=== PATIENT | male | born 1955 | race Caucasian/White ===

== ENCOUNTER 2024-11-15 14:20 | Outpatient (CLI) | payer MEDICARE, SELFPAY ==
--- NOTE | ~2024-11-15 | XR_ITS ---
EXAMINATION: XR chest 2V Exam Date/Time: 11/15/2024 14:30 CDT HISTORY: INFLUENZA W/ OTHER RESPIRATORY MANIFESTATIONS Comparison: None. RESULT: Lines, tubes, and devices: None. Lungs and pleura: Clear. Cardiomediastinal silhouette: Unremarkable. Other: No acute osseous or upper abdominal finding. IMPRESSION: No acute cardiopulmonary process. Reviewed, dictated and finalized at location K.
--- NOTE | ~2024-11-15 | US_ITS ---
COMPLETE ABDOMINAL ULTRASOUND Ordering provider: Naif Morrow, GIN History: . RUQ ABDOMINAL PAIN . Comparison: None. FINDINGS: LIVER: Normal size and increased echotexture. No focal hepatic lesions or perihepatic fluid collectio ns are identified. Portal vein flow is normal. GALLBLADDER: Unremarkable. No evidence for stones, sludge, gallbladder wall thickening or pericholecy stic fluid collections. A negative sonographic Cooper's sign was noted. BILIARY DUCTS: No evidence for intra or extrahepatic biliary dilation. Common bile duct measures 3.8 mm in diameter which is within normal limits. PANCREAS: Normal echotexture and size. SPLEEN: Normal size, echotexture and contour and measures 10.4 cm in length. KIDNEYS: Right measures 10.1x 5.3x 6.1 cm in length and the left 10.4x 4.6x 6.1 cm in length. There i s no evidence for hydronephrosis, solid renal mass, renal calculi or perinephric fluid collections. A hypoechoic area is seen between the liver and right kidney which may be a hematoma versus adrenal m ass or perirenal fat follow-up advised. UPPER ABDOMINAL AORTA: Normal in caliber. IVC: Patent. FREE FLUID: None. IMPRESSION: 1.. Fat infiltration of the liver. Hypoechoic area around the upper pole of the kidney mid and inferior to the liver which may be a artemio gisella versus prominent perirenal fat versus an adrenal mass. Further evaluation and follow-up advised. Reviewed, dictated and finalized at location A. IMPRESSION: 1.. Fat infiltration of the liver. Hypoechoic area around the upper pole of the kidney mid and inferior to the chantal er which may be a hematoma versus prominent perirenal fat versus an adrenal mas s. Further evaluation and follow-up advised.
--- OUTSIDE RECORDS SUMMARY | 2024-11-15 15:36 | XMS_ITS | Clinical Summary ---
Author Organization [address] lt Address [address] [place] [facility] [place] [address] Care Team Providers Care Carbon Sequestration Plant Manager Name Role Phone aNif Morrow Primary Care Provider [phone] Allergies No known active allergies Medications aspirin 81 mg enteric coated tablet Take 1 tablet (81 mg total) by mouth daily 30 tablet 11/29/19 21 Active atorvastatin (LIPITOR) 80 mg tablet Take 1 tablet (80 mg total) by mouth daily 30 tablet 11/29/19 21 Active nitroglycerin (NITROSTAT) 0.[address] 1 tablet (0.4 mg total) under the tongue every 5 (five) minutes as needed for chest pain May repeat dose q 5 min, up to 3 doses total 90 tablet 11/29/19 21 Active HYDROcodone-ac etaminophen (NORCO) 5-325 mg per tablet Take 1 tablet by mouth every 6 (six) hours as needed 08/19/19 22 Active methylPREDNISo lone (MEDROL DOSEPACK) 4 mg Dosepack methylprednisolone 4 mg tablets in a dose pack TAKE DIRECTED Active omeprazole (PriLOSEC) 40 mg capsule Take 1 capsule (40 mg total) by mouth daily Act [place] testosterone cypionate (DEPO-TESTOTER ONE) 200 mg/mL injection INJECT 1 ML INTRAMUSCULAR EACH WEEK 03/22/20 22 Active BD Luer-Luciano Syringe 3 mL 21 gauge x 1 syringe USE TO GIVE TESTOSTERONE ONCE WEEKLY 02/06/20 22 Active metoprolol XL (TOPROL-XL) 25 mg extended release tablet TAKE 1 TABLET BY MOUTH EVERY DAY 90 tablet 2 08/09/19 23 Active Additional Information Patient not taking.Reported on 09/14/[address] (VOLTAREN) 75 mg EC tablet Take 1 tablet (75 mg total) by mouth 2 (two) times a day 60 tablet 1 04/29/20 23 Active losartan (COZAAR) 25 mg tablet Take 1 tablet (25 mg total) by mouth daily Act [place] Active Problems Problem Noted Date Diagnosed Date Bilateral primary osteoarthritis of knee 023 Primary osteoarthritis of left knee 09/02/2022 Chronic arthropathy 01/25/2022 Fatigue 01/25/2022 Pain of knee joint on movement 01/25/2022 Angina pectoris 12/27/2020 Overview (01/25/2022): Added automatically from request for surgery [id number] Shortness of breath 06/29/2014 Overview (09/12/2016): Dyspnea Encounters Date Type Department Care Team Description 09/14/2024 1:45 PM CDT Office Visit [facility] [address] [place] [address] [address], [place] [address] Eli Tee PA Bilateral primary osteoarthritis of knee (Primary Dx) 09/13/2024 Telephone [facility] Medicine [address] [place] [address] [address] [place] [address] Eli Tee PA from Last 3 Months Immunizations Immunization Administration Dates Next Due Influenza, Quadrivalent, Split, Intramuscular Tdap 03/21/2020 Medical History Medical History Date Comments Adiposity Obesity Hypercholesteremia Chest pain Family History Medical History Relation Name Comments Heart disease Maternal Grandfather Diabetes Mother Heart disease Mother Stroke Mother Coronary artery disease Other 1 Fami ly history of Coronary artery disease; Heart disease Other 1 Hypertension Other 1 Stroke Other 1 Diabetes Other 2 Family history of Diabetes mellitus; Cancer Paternal Grandfather Relation Name Status Comments Father Maternal Grandfather Mother Other 1 Other 2 Paternal Grandfather Social History Tobacco Use Types Packs/Day Years Used Date Smoking Tobacco: Never Smokeless Tobacco: Former Snuff, Chew AUDIT-C Answer Date Recorded Q1: How often do you have a drink containing alcohol? Never 02/20/2024 Q2: How many drinks containi ng alcohol do you have on a typical day when you are drinking? Patient does not drink Q3: How often do you have si x or more drinks on one occasion? 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 Gender Identity Not on file Sexual Orientation Not on file Obstetrics History Last Filed Vital Signs Vital Sign Reading Time Taken Comments Blood Pressure 146/85 09/14/2024 1:46 PM CDT Pulse 83 09/14/2024 1:46 PM CDT Temperature 36.1 C (97 F) 01/09/2021 8:30 AM CDT Respiratory Rate 18 02/20/2024 10:24 AM CDT Oxygen Saturation 97% 01/09/2021 1:35 PM CDT Inhaled Oxygen Concentration - - Weight 130.2 kg (287 lb) 09/14/2024 1:46 PM CDT Height 188 cm (6' 2) 09/14/2024 1:46 PM CDT Body Mass Index 36.85 09/14/2024 1:46 PM CDT Plan of Treatment Health Maintenance Due Date Last Done Comments Colon Cancer Screening-Colonoscopy 1955 Depression Screening 1955 Hepatitis C Screening 1955 Prostate Cancer Screening-PSA 1955 Hepatitis B Screening 08/18/1973 Pneumococcal vaccine 65+ (1 of 1 - PCV) 08/18/2005 Zoster Vaccine (1 of 2) 08/18/2005 Abdominal Aortic Aneurysm (AAA) Screen 08/18/2020 Well Visit 65+ 08/18/2020 Fall Risk Assessment 01/09/2022 01/09/2021 Covid-19 Vaccine ( season) 2024, 07/12/2020 Influenza Vaccine (Season Ended) 2025 03/28/20 16 DTaP/Tdap/Td Vaccine (2 - Td or Tdap) 03/21/2030 Medical Devices Implanted Type Area Accounting Manager Controller Device Identifier Shelf Expiration Date Model / Serial / Lot [employer] [id number] Angio-Seal Evolution 6fr .035in Guidewire Bypass Tube Suture - [id number] Implanted:Qty: 1 on 01/09/2021 by Francisco Yee MD at [facility] 08/06/2021 [id number] / / [id number] Procedures Procedure Name Priority Date/Time Associated Diagnosis Comments MT ARTHROCENTESIS ASPIR&/INJ MAJOR JT/BURSA W/O US Routine 09/14/2024 1:45 PM CDT Bilateral primary osteoarthritis of knee from Last 3 Months Results * MT ARTHROCENTESIS ASPIR&/INJ MAJOR JT/BURSA W/O US (09/14/2024 1:45 PM CDT) Narrative Eli Tee PA - 09/14/2024 1:45 PM CDT Eli Tee PA 09/14/2024 2:48 PM Large Joint (Hip, Knee, Shoulder) Injection: bilateral knee Performed by: Eli Tee PA Authorized by: Eli Tee PA Large Joint Injection/Aspiration: Consent Given by: Patient Timeout: prior to procedure the correct patient, procedure, and site was verified Verbal consent obtained: Yes Supporting Documentation: Indications: Pain Procedure Details: Location: Knee Site: Bilateral knee Prep: patient was prepped and draped in usual sterile fashion Needle Size: 22 G Approach: Anterolateral Ultrasound guided: No Fluroscopic guidance: No Medications Right Large Joint Injection: 80 mg methylPREDNISolone acetate 80 mg/mL; 3 mL lidocaine 20 mg/mL (2 %) Medications Left Large Joint Injection: 80 mg methylPREDNISolone acetate 80 mg/mL; 3 mL lidocaine 20 mg/mL (2 %) Patient tolerance: Patient tolerated the procedure well with no immediate complications Eli [facility]IN Final Result from Last 3 Months Insurance MEDICARE UHC MEDICARE ADVANTAGE [facility] MEDICARE Address: [facility] [address] [place] [address] MEDICARE [facility] BETZAIDA [place], [place] [address] WORKERS COMPENSATION GENERIC Advance Directives For more information, please contact: [phone] * Full Code (Latest Code Status on File) Date Activated Date Inactivated Comments 01/09/2021 11:19 AM 01/09/2021 6:45 PM Care Teams Carbon Sequestration Plant Manager Relationship Specialty Start Date End Date Naif Morrow PA [address] [place] [address] PCP - General Family Practice 03/21/20
--- OUTSIDE RECORDS SUMMARY | 2024-11-15 15:36 | XMS_ITS | Clinical Summary ---
Author Organization [facility] Address [address] [place] [address] Phone Care Team Providers Care Psych Assistant Name Role Phone Naif Morrow Primary Care Provider [phone] Allergies No known active allergies Medications atorvastatin (LIPITOR) 80 MG Tablet Take 80 mg by mouth daily. 2 Active HYDROcodone-gabe taminophen (NORCO) 5-325 MG TabletIndicatio ns:Fracture of radial neck, right, closed Take 1 Tablet by mouth every 6 hours as needed for Moderate or more severe pain. 15 Tablet 2 Active Additional Information Patient not taking.Reported on 04/05/2022 CARVEDILOL PO Take by mouth. A ctive TURMERIC PO Take by mouth daily. Active OREGANO PO Take by mouth daily. Active GARLIC PO Take by mouth daily. Active Cholecalciferol (VITAMIN D3 PO) Take by mouth daily. Active other by Other route daily. BEET ROOT Active omeprazole (PriLOSEC) 40 MG CAPSULE DELAYED RELEASE Take 40 mg by mouth daily. Active oxyCODONE-aceta minophen (Percocet) 5-325 MG TabletIndicatio ns:Rib pain on right side Take 1-2 Tablets by mouth every 4 hours as needed for Severe pain. 12 Tablet 5 Active Active Problems No known active problems Encounters Date Type Department Care Team Description 11/13/2024 6:53 PM CDT - 11/13/2024 9:22 PM CDT Emergency [facility] Emergency [address] [facility] [place] [address] Ambrosio Jin MD Influenza A Discharge Disposition: Discharged to home or Selfcare 11/13/2024 Travel from Last 3 Months Immunizations Immunization Administration Dates Next Due Influenza, Injectable, Quadrivalent 03/28/2016 Influenza, Quadrivalent, Adjuvanted 04/28/2021 TDAP Vaccine 03/21/2020 Family History Medical History Relation Name Comments Cancer Maternal Grandfather Cancer Maternal Grandmother Relation Name Status Comments Maternal Grandfather Maternal Grandmother Social History Tobacco Use Types Packs/Day Years Used Date Smoking Tobacco: Never Smokeless Tobacco: Former Chew Tobacco Cessation:Counseling Given: Not Answered Alcohol Use Standard Drinks/Week Comments Not Currently 0 (1 standard drink = 0.6 oz pur e alcohol) Rarely Sexually Active Control Partners Comments Yes Sex and Gender Information Value Date Recorded Sex Assigned at Not on file Legal Sex Male 7:56 PM CDT Gender Identity Not on file Sexual Orientation Not on file Last Filed Vital Signs Vital Sign Reading Time Taken Comments Blood Pressure 159/85 11/13/2024 9:15 PM CDT Pulse 78 11/13/2024 9:15 PM CDT Temperature 37.3 C (99.1 F) 11/13/2024 6:59 PM CDT Respiratory Rate 16 11/13/2024 9:15 PM CDT Oxygen Saturation 92% 11/13/2024 9:15 PM CDT Inhaled Oxygen Concentration - - Weight 129.3 kg (285 lb) 11/13/2024 6:59 PM CDT Height 185.4 cm (6' 1) 11/13/2024 6:59 PM CDT Body Mass Index 37.6 11/13/2024 6:59 PM CDT Plan of Treatment Health Maintenance Due Date Last Done Comments Hepatitis C Virus (HCV) Screening 1955 Cologuard 08/18/2000 Immunochemical Fecal Occult Blood 08/18/2000 Pneumococcal Immunization (50+ years) (1 of 1 - PCV) 08/18/2005 Zoster Immunization (1 of 2) 08/18/2005 SARS-COV-2 Immunization ( season) 2024 04/20/2022, 04/28/2021, 08/02/2020, Additional history exists Colonoscopy 07/22/2027 07/22/2022 Colorectal Cancer Screening 07/22/2027 Td Immunization Every 10 Years (Adults With 1 Tdap) 03/21/2030 03/21/2020 Respiratory Syncytial Virus (RSV) Immunization (Adult) (1 - 1-dose 75+ series) 08/18/2030 DTaP/Tdap/Td Immunization Discontinued 03/21/2020 PSA Discussion Completed 11/15/2020 Influenza Immunization Completed 5, 03/18/2023, 04/20/2022, Additional history exists Hepatitis B Immunization Aged Out No longer eligible based on patient's age to complete this topic Human Papillomavirus (HPV) Immunization Aged Out No longer eligible based on patient's age to complete this topic Meningococcal Immunization (ACWY) Aged Out No longer eligible based on patient's age to complete this topic Rotavirus Immunization Aged Out No lo nger eligible based on patient's age to complete this topic Procedures Procedure Name Priority Date/Time Associated Diagnosis Comments D-DIMER STAT 11/13/2024 8:17 PM CDT XR RIBS UNILATERAL WITH PA CHEST RIGHT STAT 11/13/2024 7:45 PM CDT RSV,SARS-COV-2,INFLU WHITNEY A&B BY PCR STAT 11/13/2024 7:25 PM CDT PSA SCREEN Routine 11/15/2020 10:19 AM CDT Testicular hypofunction Screening for malignant neoplasm of prostate from Last 3 Months or Most Recently Relevant to Health Maintenance Results * D-Dimer (11/13/2024 8:17 PM CDT) D DIMER 0.47 <0.50 mcg/mL FEU 11/13/2024 8:49 PM CDT [facility] Blood Venipuncture / Unknown 11/13/2024 8:17 PM CDT 11/13/2024 8:32 PM CDT Narrative [facility] - 11/13/2024 8:49 PM CDT The FDA has approved this method to exclude the diagnosis of DVT and/or PE at the cutoff value of <0.50 mcg/mL FEU. Ambrosio Jin MD HEMATOLOGY ORDERABLES Tanvi forrest Result [facility] [address] [place] [address] * XR RIBS UNILATERAL WITH PA CHEST RIGHT (11/13/2024 7:45 PM CDT) Anatomical Region Laterality Modality Chest, Rib Right Digital Radiogra phy 11/13/2024 8:07 PM CDT Impressions 11/13/2024 8:09 PM CDT IMPRESSION: No rib fracture or other acute abnormality identified. Narrative 11/13/2024 8:09 PM CDT EXAM DESCRIPTION: XR RIBS UNILATERAL WITH PA CHEST RIGHT REASON FOR STUDY: right rib pain and cough x 2-3 days. Pain worsens with taking a deep breath. TECHNIQUE: Three views of the right ribs and frontal view of the chest . COMPARISON: 09/12/2023 FINDINGS: RIBS: No fracture or suspicious lesion identified. OTHER OSSEOUS: No acute abnormality. CHEST: No focal airspace opacity, pleural effusion, or pneumothorax identified. Heart size normal without pulmonary edema. CHEST WALL: Unremarkable. UPPER ABDOMEN: Unremarkable. THIS IS AN ELECTRONICALLY VERIFIED FINAL REPORT 11/13/2024 8:07 PM - Electronically signed by Hubert Castillo M.D. AR: ORI Report ID: [id number] Reading Location: [id number] Procedure Note Hubert Castillo MD - 11/13/2024 EXAM DESCRIPTION: XR RIBS UNILATERAL WITH PA CHEST RIGHT REASON FOR STUDY: right rib pain and cough x 2-3 days. Pain worsens with taking a deep breath. TECHNIQUE: Three views of the right ribs and frontal view of the chest . COMPARISON: 09/12/2023 FINDINGS: RIBS: No fracture or suspicious lesion identified. OTHER OSSEOUS: No acute abnormality. CHEST: No focal airspace opacity, pleural effusion, or pneumothorax identified. Heart size normal without pulmonary edema. CHEST WALL: Unremarkable. UPPER ABDOMEN: Unremarkable. THIS IS AN ELECTRONICALLY VERIFIED FINAL REPORT 11/13/2024 8:07 PM - Electronically signed by Hubert Castillo M.D. AR: ORI Report ID: [id number] Reading Location: [place] [address] IMPRESSION: No rib fracture or other acute abnormality identified. Ambrosio Jin MD IMG DIAGNOSTIC ORDERABLES Final Result * (ABNORMAL) RSV,SARS-COV-2,INFLUENZA A&B BY PCR (11/13/2024 7:25 PM CDT) [facility] FLU A Positive(A) Negative, Error 11/13/2024 8:17 PM CDT [facility] FLU B Negative Negative 11/13/2024 8:17 PM CDT [facility] RESP SYNC VIRUS Negative Negative 8:17 PM CDT [facility] SARSCOV2 NOT DETECTED (Reference Range for this test is Not Detected) 11/13/2024 8:17 PM CDT [facility] Comment:This test was perfor med by a Reverse Aircraft Structural Repair Mechanic PCR Method. Swab NASOPHARYNGEAL WASHINGS / Unknown Non-Phlebotomy Collection / Unknown 11/13/2024 7:25 PM CDT 11/13/2024 7:39 PM CDT Ambrosio Jin MD MICROBIOLOGY - GENERAL ORD ERABLES Final Result [facility] [address] [place] [address] * PSA SCREEN (11/15/2020 10:19 AM CDT) [facility] PSA SCREEN, TOTAL 0.25 <=4.00 ng/mL 11/15/2020 11:17 AM CDT [facility] Blood Venipuncture / Unknown 11/15/2020 10:19 AM CDT 11/15/2020 10:40 AM CDT Narrative [facility] - 11/15/2020 11:17 AM CDT PSA NOTE: The PSA value should be used in conjunction with information available from clinical evaluation and other diagnostic procedures. us Naif Morrow PAC CHEMISTRY ORDERABLES Final Re sult [facility] [address] [place] [address] from Last 3 Months or Most Recently Relevant to Health Maintenance Additional Health Concerns Infection Onset Date Last Indicated Influenza 11/13/2024 11/13/2024 [facility] Care Teams Psych Assistant Relationship Specialty Start Date End Date Naif Morrow, PAC [address] [place] [id number] PCP - General Physician Coffee Urn Attendant 11/15/20
--- OUTSIDE RECORDS SUMMARY | 2024-11-15 15:36 | XMS_ITS | Encounter Summary ---
Author Organization [facility] Address [address] [place] [address] Phone Care Team Providers Care Clothes Shaker Name Role Phone Naif Morrow Primary Care Provider [phone] Reason for Visit * Reason Comments Cough Rib Pain Encounter Details Date Type Department Care Team (Late st Contact Info) Description 11/13/2024 6:53 PM CDT - 11/13/2024 9:22 PM CDT Emergency [facility] [address] [place] [address] Ambrosio Jin MD [address] [place] [address] Influenza A Discharge Disposition: Discharged to home or Selfcare Social History Tobacco Use Types Packs/Day Years Used Date Smoking Tobacco: Never Smokeless Tobacco: Former Chew Alcohol Use Standard Drinks/Week Comments Not Currently 0 (1 standard drink = 0.6 oz pur e alcohol) Rarely Sexually Active Control Partners Comments Yes Sex and Gender Information Value Date Recorded Sex Assigned at Not on file Legal Sex Male 7:56 PM CDT Gender Identity Not on file Sexual Orientation Not on file documented as of this encounter Last Filed Vital Signs Vital Sign Reading [...] Mass Index 37.6 11/13/2024 6:59 PM CDT documented in this encounter Discharge Instructions * Discharge Instructions* Ambrosio Jin MD - 11/13/2024 9:06 PM CDT Take the pain medication as needed for rib pain. Take vmsi-xvv-oanfyvk cough cold medications as needed. You can also take ibuprofen as needed for the pain and also for fevers. Follow up with the primary care doctor in the next available appointment. documented in this encounter Medications at Time of Discharge atorvastatin (LIPITOR) 80 MG Tablet Take 80 mg by mouth daily. 08/03/2021 CARVEDILOL PO Take by mouth. Cholecalciferol (VITAMIN D3 PO) Take by mouth daily. GARLIC PO Take by mouth daily. HYDROcodone-aceta minophen (NORCO) 5-325 MG TabletIndications :Fracture of radial neck, right, closed Take 1 Tablet by mouth every 6 hours as needed for Moderate or more severe pain. 15 Tablet 08/18/2021 omeprazole (PriLOSEC) 40 MG CAPSULE DELAYED RELEASE Take 40 mg by mouth daily. OREGANO PO Take by mouth daily. other by Other route daily. BEET ROOT oxyCODONE-acetami nophen (Percocet) 5-325 MG TabletIndications :Rib pain on right side Take 1-2 Tablets by mouth every 4 hours as needed for Severe pain. 12 Tablet 11/13/2024 TURMERIC PO Take by mouth daily. documented as of this encounter ED Notes * Tess Cabrera RN - 11/13/2024 9:19 PM CDT Patient discharged. Discharge instructions and patient educational material reviewed with patient; questions and concerns addressed; patient verbalizes understanding, using teach back. Patient was given 1 prescriptions. Patient was informed no drinking alcohol, driving or operating heavy machinery while taking narcotics or muscle relaxants. Patient discharged per ambulatory mode with self as responsible democrat. D/C'ed with Vikash cath intact. * Tess Cabrera RN - 11/13/2024 8:20 PM CDT Pt medicated per provider orders. Pt educated on intended effects and side effects of medication and verbalized understanding, able to provide teach back of education. * Tess Cabrera RN - 11/13/2024 7:30 PM CDT Swab collected and sent to lab. * Ambrosio Jin MD - 11/13/2024 7:17 PM CDT Chief Complaint Patient presents with Cough Rib Pain 69 year old male with a history of hypertension, high cholesterol presents to the emergency room with right-sided rib pain. He reports having a cough for about a week that has been worse for the past3 days. Reports right-sided rib pain since having a coughing fit on . He has severe pain with the cough, sneezing and deep breaths. He reports subjective fevers and drenching night sweats over the past several nights. It was unable to take his temperature that has he was out of town. thought that he felt hot. His cough has been productive of mainly clear light colored sputum. He has been taking Tylenol for the pain with minimal relief. The history is provided by the patient. Cough Rib Pain Current Medications[1] Allergies[2] Past Medical History Positives Diagnosis Date High cholesterol Hypertension no meds SAMANTHA (obstructive sleep apnea) Does not have a cpap Past Surgical History[3] Social History Socioeconomic History Marital status: Spouse name: Not on file Number of children: Not on file Years of education: Not on file Highest education level: Not on file Occupational History Not on file Tobacco Use Smoking status: Never Smokeless tobacco: Former Types: Chew Vaping Use Vaping status: Never Used Substance and Sexual Activity Alcohol use: Not Currently Comment: Rarely Drug use: Never Sexual activity: Yes Other Topics Concern Not on file Social History Narrative Not on file Social Drivers of Health Financial Resource Needs: Not on file Food Insecurity Needs: Not on file Transportation Needs: Not on file Physical Activity: Not on file Stress: Not on file Social Integration: Not on file Personal Safety: Low Risk (11/13/2024) Personal Safety Feels Unsafe at Home or Work/School: no Feels Threatened by Someone: no Does Anyone Try to Keep You From Having Contact with Others or Doing Things Outside Your Home?: no Physical Signs of Abuse Present: no Housing Stability: Not on file BP 141/78 Pulse 84 Temp 99.1 ??F (37.3 ??C) (Tympanic) Resp 16 Ht 6' 1 (1.854 m) Wt 285 lb (129.3 kg) SpO2 94% BMI 37.60 kg/m?? Review of Systems All other systems reviewed and are negative. Physical Exam Vitals and nursing note reviewed. Constitutional: General: He is not in acute distress. Appearance: He is not ill-appearing. HENT: Head: Normocephalic. Nose: Nose normal. Mouth/Throat: Mouth: Mucous membranes are moist. Eyes: Extraocular Movements: Extraocular movements intact. Conjunctiva/sclera: Conjunctivae normal. Cardiovascular: Comments: Pain to palpation of the right lateral ribcage about the level of the 5th or 6th rib. No crepitus. No external signs of injury including swelling or bruising noted. Pulmonary: Effort: Pulmonary effort is normal. No respiratory distress. Breath sounds: Normal breath sounds. No wheezing or rales. Abdominal: General: There is no distension. Musculoskeletal: General: Normal range of motion. Cervical back: Normal range of motion. Skin: General: Skin is warm and dry. Findings: No rash. Neurological: General: No focal deficit present. Mental Status: He is alert. Psychiatric: Mood and Affect: Mood normal. Thought Content: Thought content normal. Procedures Recent Results (from the past 24 hours) RSV,SARS-COV-2,INFLUENZA A&B BY PCR Collection Time: 11/13/24 7:25 PM Specimen: Nasal Washing; Swab Result Value Ref Range FLU A Positive (A) Negative, Error FLU B Negative Negative RESP SYNC VIRUS Negative Negative SARSCOV2 NOT DETECTED (Reference Range for this test is Not Detected) D-Dimer Collection Time: 11/13/24 8:17 PM Result Value Ref Range D DIMER 0.47 <0.50 mcg/mL FEU Imaging Results XR RIBS UNILATERAL WITH PA CHEST RIGHT (Final result) Result time 11/13/24 20:09:44 Final result by Hubert Castillo MD (11/13/24 20:09:44) Impression: IMPRESSION: No rib fracture or other acute abnormality identified. Narrative: EXAM DESCRIPTION: XR RIBS UNILATERAL WITH PA [...] Hubert Castillo M.D. AR: ORI Report ID: [id number] Reading Location: [place] [address] Medical Decision Making Impression: Patient presents with complaints of right-sided rib pain, cough and fever. Notably, further history obtained from the patient and prior records from prior ED visits were reviewed. Patient's history of hypertension, hyperlipidemia has impacted care and subsequent medical decision making. Differential diagnosis includes - pneumonia, pneumothorax, PE he . I considered additional work up for possible sepsis, but did not pursue due to alternative diagnosis more likely and signs and symptoms on exam and initial findings not consistent with these disease processes. Tests were independently reviewed and interpreted and imaging independently visualized and interpreted. ED evaluation is significant for positive influenza, negative chest radiograph for fracture pneumonia. Interventions and treatments in the ER pain medication, cardiopulmonary monitoring I considered escalation of care including observation versus admission but not warranted due to lowacuity of condition. Plan for discharge. Discussed the case with the patient is agreeable with plan for discharge. I will prescribe 12 Percocet. Reasons to return to the emergency room were discussed. Clinical Impression 1. Rib pain on right side 2. Influenza A Disposition: Discharge [1] No current facility-administered medications for this encounter. Current Outpatient Medications Medication Sig Dispense Refill atorvastatin (LIPITOR) 80 MG Tablet Take 80 mg by mouth daily. CARVEDILOL PO Take by mouth. (Patient not taking: Reported on 07/09/2022) Cholecalciferol (VITAMIN D3 PO) Take by mouth daily. GARLIC PO Take by mouth daily. HYDROcodone-acetaminophen (NORCO) 5-325 MG Tablet Take 1 Tablet by mouth every 6 hours as needed for Moderate or more severe pain. (Patient not taking: Reported on 04/05/2022) 15 Tablet 0 omeprazole (PriLOSEC) 40 MG CAPSULE DELAYED RELEASE Take 40 mg by mouth daily. OREGANO PO Take by mouth daily. other by Other route daily. BEET ROOT oxyCODONE-acetaminophen (Percocet) 5-325 MG Tablet Take 1-2 Tablets by mouth every 4 hours as needed for Severe pain. 12 Tablet 0 TURMERIC PO Take by mouth daily. [2] No Known Allergies [3] Past Surgical History: Procedure Laterality Date CARDIAC CATHERIZATION Left 01/09/2021 COLONOSCOPY N/A 07/22/2022 Procedure: COLONOSCOPY - DESCENDING COLON POLYPECTOMY X2, RECTAL SIGMOID POLYPECTOMY; Surgeon: Jessica Rosado MD; Location: [facility]; Service: Gastroenterology UPPER GASTROINTESTINAL ENDOSCOPY N/A 04/12/2022 Procedure: EGD- ANTRAL EROSIONS, ANTRAL BIOPSIES; Surgeon: Jessica Rosado MD; Location: [facility]; Service: Gastroenterology * Divine Lopez RN - 11/13/2024 7:03 PM CDT Patient presents to ED with complaint of productive cough and rib pain x2-3 days. Patient states [place], and has coughed so much his right side has begun to hurt.Patient denies shortness of breath but reports it hurts to take a deep breath. Patient also reportsintermittent fevers he's been treating with ibuprofen. Patient afebrile at this time. VSS. Flu, covid, RSV swab obtained. documented in this encounter Miscellaneous Notes * PatientPass Patient Instructions - Ambrosio Jin MD - 11/13/2024 9:06 PM CDT Images from the original note were not included. Patient Education Table of Contents Influenza, Adult To view videos and all your education online visit, [email or web address] or scan this QR code with your smartphone. Access to this content will in one year. Influenza, Adult Influenza is also called the flu. It's an infection that affects your respiratory tract. This includes your nose, throat, windpipe, and lungs. The flu is contagious. This means it spreads easily from person to person. It causes symptoms that are like a cold. It can also cause a high fever and body aches. What are the causes? The flu is caused by the influenza virus. You can get it by: Breathing in droplets that are in the air after an infected person coughs or sneezes. Touching something that has the virus on it and then touching your mouth, nose, or eyes. What increases the risk? You may be more likely to get the flu if: You don't wash your hands often. You're near a lot of people during cold and flu season. You touch your mouth, eyes, or nose without washing your hands first. You don't get a flu shot each year. You may also be more at risk for the flu and serious problems, such as a lung infection called pneumonia, if: You're older than 65. You're . Your immune system is weak. Your immune system is your body's defense system. You have a long-term, or chronic, condition, such as: ? Heart, kidney, or lung disease. ? Diabetes. ? A liver disorder. ? Asthma. You're very overweight. You have anemia. This is when you don't have enough red blood cells in your body. What are the signs or symptoms? Flu symptoms often start all of a sudden. They may last 4?14 days and include: Fever and chills. Headaches, body aches, or muscle aches. Sore throat. Cough. Runny or stuffy nose. Discomfort in your chest. Not wanting to eat as much as normal. Feeling weak or tired. Feeling dizzy. Nausea or vomiting. How is this diagnosed? The flu may be diagnosed based on your symptoms and medical history. You may also have a physical exam. A swab may be taken from your nose or throat and tested for the virus. How is this treated? If the flu is found early, you can be treated with antiviral medicine. This may be given to you by mouth or through an IV. It can help you feel less sick and get better faster. Taking care of yourself at home can also help your symptoms get better. Your health care provider may tell you to: Take kaof-yeo-jptlyyh medicines. Drink lots of fluids. The flu often goes away on its own. If you have very bad symptoms or problems caused by the flu, you may need to be treated in a hospital. Follow these instructions at home: Activity Rest as needed. Get lots of sleep. Stay home from work or school as told by your provider. ? Leave home only to go see your provider. ? Do not leave home for other reasons until you don't have a fever for 24 hours without taking medicine. Eating and drinking Take an oral rehydration solution (ORS). This is a drink that is sold at pharmacies and stores. Drink enough fluid to keep your pee pale yellow. Try to drink small amounts of clear fluids. These include water, ice chips, fruit juice mixed with water, and low-calorie sports drinks. Try to eat bland foods that are easy to digest. These include bananas, applesauce, rice, lean meats, toast, and crackers. Avoid drinks that have a lot of sugar or caffeine in them. These include energy drinks, regular sports drinks, and soda. Do not drink alcohol. Do not eat spicy or fatty foods. General instructions Take your medicines only as told by your provider. Use a cool mist humidifier to add moisture to the air in your home. This can make it easier for youto breathe. You should also clean the humidifier every day. To do so: ? Empty the water. ? Pour clean water in. Cover your mouth and nose when you cough or sneeze. Wash your hands with soap and water often and for at least 20 seconds. It's extra important to do so after you cough or sneeze. If you can't use soap and water, use hand production manufacturing worker. How is this prevented? Get a flu shot every year. Ask your provider when you should get your flu shot. Stay away from people who are sick during fall and winter. Fall and winter are cold and flu season. Contact a health care provider if: You get new symptoms. You have chest pain. You have watery poop, also called diarrhea. You have a fever. Your cough gets worse. You start to have more mucus. You feel like you may vomit, or you vomit. Get help right away if: You become short of breath or have trouble breathing. Your skin or nails turn blue. You have very bad pain or stiffness in your neck. You get a sudden headache or pain in your face or ear. You vomit each time you eat or drink. These symptoms may be an emergency. Call 911 right away. Do not wait to see if the symptoms will go away. Do not drive yourself to the hospital. This information is not intended to replace advice given to you by your health care provider. Make sure you discuss any questions you have with your health care provider. Document Released: 2001-05-23 Document Updated: 2024-02-26 Document Reviewed: 2023-07-03 [employer] Patient Education ? 2024 [employer]. documented in this encounter Plan of Treatment Not on file documented as of this encounter Procedures Procedure Name Priority Date/Time Associated Diagnosis Comments D-DIMER STAT 11/13/2024 8:17 PM CDT XR RIBS UNILATERAL WITH PA CHEST RIGHT STAT 11/13/2024 7:45 PM CDT RSV,SARS-COV-2,INFLU WHITNEY A&B BY PCR STAT 11/13/2024 7:25 PM CDT documented in this encounter Results * D-Dimer (11/13/2024 8:17 PM CDT) D DIMER 0.47 <0.50 mcg/mL FEU 11/13/2024 8:49 PM CDT [facility] Blood Venipuncture / Unknown 11/13/2024 8:17 PM CDT 11/13/2024 8:32 PM CDT Narrative [facility] - 11/13/2024 8:49 PM CDT The FDA has approved this method to exclude the diagnosis of DVT and/or PE at the cutoff value of <0.50 mcg/mL FEU. us Ambrosio Jin MD HEMATOLOGY ORDERABLES Tanvi l Result [facility] [address] [place] [address] * XR RIBS UNILATERAL WITH PA CHEST [...] Hubert Castillo M.D. AR: ORI Report ID: [id number] Reading Location: [id number] Procedure Note Hubert Castillo MD - 11/13/2024 [...] Hubert Castillo M.D. AR: ORI Report ID: [id number] Reading Location: [id number] IMPRESSION: No rib fracture or other acute abnormality identified. Ambrosio Jin MD IMG DIAGNOSTIC ORDERABLES Final Result * (ABNORMAL) RSV,SARS-COV-2,INFLUENZA A&B BY PCR (11/13/2024 7:25 PM CDT) FLU A Positive(A) Negative, Error 11/13/2024 8:17 PM CDT [facility] FLU B Negative Negative 11/13/2024 8:17 PM CDT [facility] RESP SYNC VIRUS Negative Negative 8:17 PM CDT [facility] SARSCOV2 NOT DETECTED (Reference Range for this test is Not Detected) 11/13/2024 8:17 PM CDT [facility] Comment:This test was perfor med by a Reverse Esl Instructional Assistant PCR Method. Swab NASOPHARYNGEAL WASHINGS / Unknown Non-Phlebotomy Collection / Unknown 11/13/2024 7:25 PM CDT 11/13/2024 7:39 PM CDT Ambrosio Jin MD MICROBIOLOGY - GENERAL ORD ERABLES Final Result [facility] [address] [place] [address] documented in this encounter Visit Diagnoses Diagnosis Rib pain on right side- Primary Chest pain, unspecified Influenza A Influenza with other respiratory manifestations documented in this encounter Administered Medications Inactive Administered Medications - up to 3 most recent administrations Medication Order MAR Action Action Date Dose Rate Site oxyCODONE-acetaminophen (PERCOCET) 5-325 MG per tablet 1 Tablet 1 Tablet, Oral, ONCE, 1 dose, On 11/13/24 at 2029, Maximum dose of acetaminophen is 4000 mg from all sources in 24 hours. If pain not effectively managed, then contact provider to discuss possibly 1) adding scheduled opioid dosing or non-opioid pain treatments, 2) increasing dosage, or 3) changing to HARNESS TIER. Given 11/13/2024 8:21 PM CDT 1 Tablet documented in this encounter Active and Recently Administered Medications Times are shown in CDT. Scheduled Medication Order 11/11/2024 11/12/2024 11/13/2024 oxyCODONE-acetaminophen (PERCOCET) 5-325 MG per tablet 1 Tablet (COMPLETED) 1 Tablet, Oral, ONCE, 1 dose, On 11/13/24 at 2029, Maximum dose of acetaminophen is 4000 mg from all sources in 24 hours. If pain not effectively managed, then contact provider to discuss possibly 1) adding scheduled opioid dosing or non-opioid pain treatments, 2) increasing dosage, or 3) changing to HARNESS TIER. 2020 (Given - [facility] er: Tess Cabrera RN) documented in this encounter Additional Health Concerns Infection Onset Date Last Indicated Resolved Time COVID - 19 11/13/2024 11/13/2024 11/13/2024 8:17 PM CDT Influenza 11/13/2024 11/13/2024 documented as of this encounter Care Teams Clothes Shaker Relationship Specialty Start Date End Date Naif Morrow PAC [address] [place] [address] PCP - General Physician Bushel Girl 11/15/20 documented as of this encounter
--- OUTSIDE RECORDS SUMMARY | 2024-11-15 15:36 | XMS_ITS | Referral Summary ---
Author Organization [address] lto Address [address] [place] [address] Care Team Providers Care Merchandise Coordinator Name Role Phone Naif Morrow Primary Care Provider [phone] Encounters Date Type Department Care Team Description 09/14/2024 1:45 PM CDT Office Visit [facility] Medical [facility] [address] [place] [address] [address] [place] [address] Eli Tee PA Bilateral primary osteoarthritis of knee (Primary Dx) 09/13/2024 Telephone [facility] [address] [place] [address] [address] [place] [address] Eli Tee PA from Last 3 Months Allergies No known active allergies Medications aspirin [...] (01/25/2022): Added automatically from request for surgery [id number] Shortness of breath 06/29/2014 Overview (09/12/2016): Dyspnea Immunizations Immunization Administration Dates Next Due Influenza, Quadrivalent, Split, Intramuscular Tdap 03/21/2020 Social History Tobacco Use Types Packs/Day Years [...] on file Legal Sex Male 9:57 AM [facility] Gender Identity Not on file Sexual Orientation [...] 09/14/2024 1:46 PM CDT Plan of Treatment Not on file Medical Devices Implanted Type Area Cover Marker Device Identifier Shelf Expiration Date Model / Serial / Lot [employer] [id number] Angio-Seal Evolution 6fr .035in Guidewire Bypass Tube Suture - [id number] Implanted:Qty: 1 on 01/09/2021 by Francisco Yee MD at [facility] [employer] [place] 08/06/2021 [id number] / / [id number] Procedures Procedure Name Priority Date/Time Associated Diagnosis Comments ND ARTHROCENTESIS ASPIR&/INJ MAJOR JT/BURSA W/O US Routine 09/14/2024 1:45 PM CDT Bilateral primary osteoarthritis of knee from Last 3 Months Results * ND ARTHROCENTESIS ASPIR&/INJ MAJOR JT/BURSA W/O US (09/14/2024 [...] the procedure well with no immediate complications us [facility] Final Result from Last 3 Months Insurance MEDICARE UHC MEDICARE ADVANTAGE MEDICARE MUTUAL [facility] WORK[facility] COMPENSATION GENERIC Advance Directives For more information, please contact: [phone] * Full Code (Latest Code Status on File) Date Activated Date Inactivated Comments 01/09/2021 11:19 AM 01/09/2021 6:45 PM Care Teams Merchandise Coordinator Relationship Specialty Start Date End Date Naif Morrow PA [address] [place] [address] PCP - General Family Practice 03/21/20
--- OUTSIDE RECORDS SUMMARY | 2024-11-15 15:36 | XMS_ITS | Clinical Summary ---
Author Organization [facility] [employer] Address [address] [place] [address] Care Team Providers Care Pile Driver Engineer Name Role Phone Naif Morrow Primary Care Provider [phone] Source Comments [facility] [employer],non-owned Affiliates and Associated Physician Practices is amultiple site organization consisting of ambulatory clinics and hospital sitesin [place], [place] and [place]. This disclosure is being madepursuant to the Care Everywhere program and may not contain all information available regarding this patient. Last updated 18.[facility] [employer] Allergies No known active allergies Medications * Be aware that medications may not be up to date on this document. Alwaysverify current medications with the patient. atorvastatin (Lipitor) 80 MG tablet Take 1 (one) tablet by mouth once daily 3 Active nitroGLYCERIN (Nitrostat) 0.4 MG tablet Active omeprazole (PriLOSEC) 40 MG capsule Take 1 (one) capsule by mouth once daily 3 Active ondansetron (Zofran) 4 MG tablet 3 Active BD Plastipak Syringe 21G X 1 3 ML MISC USE TO GIVE TESTOSTERONE ONCE WEEKLY 3 Active testosterone cypionate (Depo-Testoste maya) 200 MG/ML injection INJECT 1 ML INTRAMUSCULAR EACH WEEK 2 Active Social History Tobacco Use Types Packs/Day Years Used Date Smoking Tobacco: Never Smokeless Tobacco: Never Tobacco Cessation:Counseling Given: Not Answered Sex and Gender Information Value Date Recorded Sex Assigned at Not on file Legal Sex Male 3:45 PM CDT Gender Identity Not on file Sexual Orientation Not on file Plan of Treatment Health Maintenance Due Date Last Done Comments COLOGUARD (AGES 45-75) - COL ON CA SCREENING 1955 COLON MONITORING 1955 COLONOSCOPY - COLON CA SCREENING 1955 CT COLONOGRAPHY - COLON CA SCREENING 1955 Colorectal Cancer Screening 1955 FIT - COLON CA SCREENING 1955 FLEX SIG - COLON CA SCREENING 1955 MEDICARE AWV 12 MONTHS 1955 HEPATITIS C SCREENING 08/14/1973 DTAP/TDAP/TD VACCINES (1 - Tdap) 08/18/1974 PNEUMOCOCCAL VACCINE 50+ (1 of 1 - PCV) 08/18/2005 ZOSTER VACCINE (1 of 2) 08/18/2005 COVID-19 VACCINE (3 - 2023-2 5 season) 2024 08/02/2020, 07/12/2020 DEPRESSION SCREENING 06/09/2024 INFLUENZA VACCINE (Season Ended) 2025 03/28/2016 Respiratory Syncytial Virus (RSV) Vaccine Pt: or over 60 yrs (1 - 1-dose 75+ series) 08/18/2030 HEPATITIS B VACCINE Aged Out No longe r eligible based on patient's age to complete this topic HIB VACCINE Aged Out No longer eligi ble based on patient's age to complete this topic HPV VACCINE Aged Out No longer eligi ble based on patient's age to complete this topic MENINGOCOCCAL (Group B) VACCINE SHARED DECISION-MAKING Aged Out No longer eligible based on patient's age to complete this topic MENINGOCOCCAL GROUPS A/C/Y/W VACCINE Aged Out No longer eligible b ased on patient's age to complete this topic Insurance MEDICARE Care Teams Pile Driver Engineer Relationship Specialty Start Date End Date Naif Morrow PA [address] [place] [address] PCP - General Physician Entry Level Sales Representative 12/24/22
--- OUTSIDE RECORDS SUMMARY | 2024-11-15 15:36 | XMS_ITS | Continuity of Care Document ---
Author Organization [facility] Address [address] [place] [address] Care Team Providers Care Linux Solaris Administrator Name Role Phone PAULA MORROW Primary Care Provider Assessment No assessment recorded. Plan of Treatment Reminders Order Date Submit Date Provider Last Modified By Organization Details Last Modified Time Details Appointments ANY 15 2024 01:30P Iris Morrow PA-C Not available Not available Not available Lab [facility], [address] [place] [address], [id number], 11/15/2024 14:57:08 CMP, serum or plasma 2024 025 [facility], [address] [place] [address], [id number], 11/15/2024 14:57:08 lipid panel, serum 2024 025 [facility], [address] [place] [address], [id number], 11/15/2024 14:57:08 Referral None recorded. Procedures None recorded. Surgeries None recorded. Imaging XR, chest, 2 view 2024 025 [facility] (Registration ), [address] [place], [address], 11/15/2024 15:05:28 US, abdomen - stat please 2024 025 [facility], [address] [place], [address], 11/15/2024 15:05:27 Medication Orders duloxetin e 30 mg capsule,d elayed release 2024 025 [facility][id number], [address], [place], [id number], 11/15/2024 14:57:08 diclofena c sodium 75 mg tablet,de layed release 2024 025 [facility] #[id number], [address], [place], [id number], 11/15/2024 14:57:08 testoster one cypionate 200 mg/mL intramusc ular oil 2024 025 [facility] #[id number], [address], [place], [id number], 11/15/2024 14:57:08 benzonata te 200 mg capsule 2024 025 [facility] #24651, [address], [place], [id number], 11/15/2024 14:57:33 Tamiflu 75 mg capsule 2024 025 [facility] #[id number], [address], [place], [id number], 11/15/2024 15:00:57 losartan 100 mg tablet 2024 025 [facility] #08893, [address], [place], [id number], 11/15/2024 14:57:08 Airsupra 90 mcg-80 mcg/actua tion HFA aerosol inhaler 2024 025 [facility] #76513, [address], [place], [id number], 11/15/2024 14:57:09 acetamino phen 300 mg-codein e 30 mg tablet 2024 025 [facility]51042, [address], [place], [id number], 11/15/2024 14:57:09 Patient TargetsNo targets recorded. Patient Instructions Encounter Date Encounter Id Patient Instructions Last Modified By Organization Details Last Modified Time 11/15/2024 [id number] A healthy lifestyle: care instructions [facility] Not available 11/15/2024 14:59:18 Reason for Referral None Reported. Results Created Date Observation Date Name Description Value Unit Range Abnormal Flag Note LastModifiedBy Organization Detail LastModifiedTime 11/16/1911/13/2024 XR, ribs, unila teral No observ ation record ed. [facility] [address] [place], [address], 11/15/2024 15:45:14 Result Notes None recorded. Problems Name Problem SNOMED Code Status Onset Date Resolution Date Notes Provider Name and Address Organization Details Recorded Time Atypical chest pain 297638767 [facility] [place], [place] - [facility] 6 16:13:32 Angina pectoris 353903014 Jaswinder Haddad [place] null, [place] - [facility] 6 16:13:32 Dyspnea on exertion 24138581 Active Leticia Haddad [place], [place] [facility] 6 16:13:32 Knee joint painful on movement 547402878 Active Leticia Haddad [place], [place] [facility] 6 16:13:32 Chronic arthropathy 09592886 Active Paula Morrow PA-C Attn: Riki pacheco,[address] [place], [address] [facility] [place] [facility] 16:41:37 Fatigue 68669003 Active Paula Morrow PA-C Attn: Riki pacheco,[address] [place], [address], [facility] - [facility] 6 16:41:37 Problem Notes None recorded. Procedures Surgical History Date Name Laterality Status Provider Name and Address Organization Details Recorded Time colonoscopy completed Dior Begum MA [place] - [facility] 07/22/2022 12:32:58 Imaging Results None recorded. Procedure Notes None recorded. Medical Equipment None Reported. Allergies No known drug allergies Medications Name Sig Start Date Stop Date Status Note LastModified by Organization Details LastModified Time amoxicill in 500 mg capsule TAKE ONE CAPSULE BY MOUTH EVERY 8 HOURS 06/16 completed Not Available Not Available Not Available atorvasta tin 80 mg tablet TAKE 1 TABLET BY MOUTH EVERY DAY 2024 active Not Available Not Available Not Avai lable benzonata te 200 mg capsule Take 1 capsule 3 times a day by oral route as needed for 30 days. 2024 active Not Available Not Available Not Avai lable Depo-Test osterone 100 mg/mL intramusc ular oil Give 1ml IM each week 06/16 completed Not Available Not Available Not Available hydrocodo ne 5 mg-acetam inophen 325 mg tablet TAKE 1/2 TABLET BY MOUTH EVERY 6 HOURS NEEDED FOR PAIN 06/16 completed Not Available Not Available Not Available ondansetr on HCl 4 mg tablet TAKE 1 TABLET BY MOUTH TWICE A DAY NEEDED FOR 10 DAYS active Not Available Not Available No t Available permethri n 5 % topical cream Apply 1 applicat ion as needed by topical route as directed for 1 day. 11/10 completed Not Available Not Available Not Available acetamino phen 300 mg-codein e 30 mg tablet Take 1 tablet every 6 hours by oral route as needed for 30 days. 2024 active Not Available Not Available Not Avai lable amlodipin e 5 mg tablet Take 1 tablet every day by oral route for 30 days. 2013 active Not Available Not Available Not Avai lable Tamiflu 75 mg capsule Take 1 capsule twice a day by oral route for 5 days. 2024 active Not Available Not Available Not Avai lable Syringe 3 mL 20 gauge x 1 USE TO GIVE TESTOSTE KARUNA WEEKLY 2021 active Not Available Not Available Not Avai lable omeprazol e 40 mg capsule,d elayed release TAKE 1 CAPSULE BY MOUTH EVERY DAY active Not Available Not Available No t Available aspirin 81 mg tablet,de layed release Take 1 tablet every day by oral route for 90 days. 2024 active cardiolo gy reports Not Available Not Available Not Available tramadol 50 mg tablet Take 1 tablet every 8 hours by oral route for 30 days. 03/21 completed Not Available Not Available Not Available Depo-Medr ol 80 mg/mL suspensio n for injection Take 1 mL by injectio n route. 03/21 completed Not Available Not Available Not Available oxycodone -acetamin ophen 5 mg-325 mg tablet TAKE 1 TO 2 TABLETS BY MOUTH EVERY 4 HOURS NEEDED FOR SEVERE PAIN active Not Available Not Available No t Available benzonata te 100 mg capsule Take 1 capsule 3 times a day by oral route for 30 days. 03/21 completed Not Available Not Available Not Available cephalexi n 500 mg capsule TAKE 1 CAPSULE BY MOUTH TWICE A DAY FOR 10 DAYS 09/03 completed Not Available Not Available Not Available nitroglyc ga 0.4 mg sublingua l tablet PLACE ONE TABLET UNDER THE TONGUE AT ONSET OF CHESTPAI N. MAY REPEAT IN 5 MINUTES AND GO TO ER IF TAKES A 3RD DOSE active Not Available Not Available No t Available diclofena c sodium 75 mg tablet,de layed release Take 1 tablet twice a day by oral route for 30 days. 2024 active Not Available Not Available Not Avai lable metoprolo l succinate ER 25 mg tablet,ex tended release 24 hr TAKE 1 TABLET BY MOUTH EVERY DAY 10/01 completed Not Available Not Available Not Available testoster one cypionate 200 mg/mL intramusc ular oil INJECT 1/2 ML INTRAMUS CULAR EACH WEEK 2024 active Not Available Not Available Not Avai lable methylpre dnisolone 4 mg tablets in a dose pack FOLLOW PACKAGE DIRECTIO NS 06/16 completed Not Available Not Available Not Available losartan 100 mg tablet Take 1 tablet every day by oral route for 90 days. 2024 active Not Available Not Available Not Avai lable BD Luer-Luciano Syringe 3 mL 21 gauge x 1 USE DIRECTED TO GIVE TESTOSTE KARUNA ONCE WEEKLY active Not Available Not Available No t Available azithromy loli 500 mg tablet TAKE 1 TABLET BY MOUTH EVERY DAY FOR 3 DAYS 06/16 completed Not Available Not Available Not Available duloxetin e 30 mg capsule,d elayed release Take 1 capsule every day by oral route for 30 days. 2024 active Not Available Not Available Not Avai lable Airsupra 90 mcg-80 mcg/actua tion HFA aerosol inhaler Inhale 2 inhalati ons 4 times a day by inhalati on route as needed. 2024 active Not Available Not Available Not Avai lable Vitals Date Recorded Systolic blood pressure Diastolic blood pressure Provider Name and Address Organization Details Last Updated DateTime 11/15/2024 138 mm[Hg] 78 mm[Hg] Paula Morrow PA-C Attn: Accounting,[address] [place], [address], [facility] 11/15/2024 14:59:01 Date Recorded Body height Body mass index (BMI) Body weight Oxygen saturation Oxygen saturation in Arterial blood by Pulse oximetry Heart rate Provider Name and Address Organization Details Last Updated DateTime 185.42 cm 38 kg/m2 063936. 6 g 93 % 93 % 84 /min Dior Begum MA [facility] 5 14:31:56 Social History Question Answer Notes LastModified by Organizat ion Details LastModified Time Tobacco Smoking Status Never Smoker Dior Begum MA null, [facility] 11/10/2020 15:35:25 Are You Blind Or Do You Have Difficulty Seeing? Yes Information n ot available 09/03/2022 What Is Your Level Of Caffeine Consumption? Moderate Information not available 01/30/2022 In The 14 Days Before Symptom Onset, Have You Had Close Contact With A Laboratory-confirm ed COVID-19 While That Case Was Ill? No Information n ot available 11/10/2020 In The 14 Days Before Symptom Onset, Have You Had Close Contact With A Person Who Is Under Investigation For COVID-19 While That Person Was Ill? No Information not available 11/10/2020 Have You Been To An Area Known To Be High Risk For COVID-19? No Information not available 11/10/2020 Are You Deaf Or Do You Have Serious Difficulty Hearing? No Information not available 09/03/2022 What Type Of Diet Are You Following? REGULAR Information n ot available 11/10/2020 What Was The Date Of Your Most Recent Tobacco Screening? 11/15/2024 Information not available 11/15/2024 What Is Your Relationship Status? Information not available 11/10/2020 Do You Use Your Seat Belt Or Car Seat Routinely? Yes Information not available 11/10/2020 Do You Have Smoke And Carbon Monoxide Detectors In Your Home? Yes Information not available 11/10/2020 Are You Passively Exposed To Smoke? No Information no t available 11/10/2020 Has Tobacco Cessation Counseling Been Provided? No Information not available 11/10/2020 How Many Years Have You Smoked Tobacco? 30 [email or web address] Information not available 05/18/2014 Sex: Unknown Functional Status Question Answer Note LastModified by Organizat ion Details LastModified Time Do you use any illicit or recreational drugs? No Information not available 11/10/2020 Do you or have you ever used any other forms of tobacco or nicotine? Yes Information not available 11/10/2020 What is your level of alcohol consumption? Occasional Information not available 11/10/2020 Do you or have you ever used smokeless tobacco? Former smokeless tobacco user Information not available 11/10/2020 Are you currently employed? Yes Information not available 11/10/2020 Are you able to care for yourself? Yes Information not available 11/10/2020 What is your occupation? [employer] Information not available 11/10/2020 Do you or have you ever used e-cigarettes or vape? Never used electronic cigarettes Information not available 01/30/2022 What is your exercise level? None Information not available 09/03/2022 Mental Status Question Answer Note LastModified by Organization D etails LastModified Time Do you feel stressed (tense, restless, nervous, or anxious, or unable to sleep at night)? [id number] Information not available 12/13/2022 Family History Relationship Description Onset Age of this Age Resolved Age Notes LastModified by Organization Details LastModified Time Mother History of cerebrovascu lar accident [email or web address] Not available 1 16:13:32 Mother Disorder of coronary artery [email or web address] Not available 03/09 16:13:32 Mother Heart disease [email or web address] Not available 03/09 16:13:32 Father Alcoholism [email or web address] Not avai lable 03/21/2016 16:13:32 Medical History Condition Response Coronary Artery Disease N Other N High Blood Pressure Y Atrial Fibrillation N Thyroid Problems N Kidney or Bladder Problems N GI Problems N Depression N COPD N Blood Clots N Skin Problems N Eating Disorder N Anemia N Heart Attack ([place]) N Anxiety Disorder N Diabetes N Muscle, Joint, or Bone Problems N Seizures/Epilepsy N Acid Reflux (GERD) N Cancer N Stroke N Asthma N Allergies N ADHD N Substance Abuse N High Cholesterol Y Hepatitis N Liver Disease N Schizophrenia N Headaches N Heart Failure N Osteoporosis N Immunizations Vaccine Type Date Status Note Provider Nam e and Address Organization Details Recorded Time COVID-19, mRNA, LNP-S, PF, 30 mcg/0.3 mL dose 1 completed [facility] [place], [place] - [facility] 03/04/2023 09:52:56 COVID-19, mRNA, LNP-S, PF, 30 mcg/0.3 mL dose 1 completed [facility]ICE [place], [place] [facility] 03/04/2023 09:52:56 Influenza, split virus, quadrivalent, preservative 6 completed Not Available [facility] 06/26/2019 02:50:31 Tdap 0 completed [facility]ICE [place] [facility] 03/04/2023 09:52:56 Influenza, adjuvanted, quadrivalent, PF 1 completed [facility] [facility] 03/18/2023 09:42:54 COVID-19, mRNA, LNP-S, PF, 30 mcg/0.3 mL dose 1 completed Dior Begum [place] null, [place] [facility] 03/18/2023 09:42:54 Influenza, adjuvanted, quadrivalent, PF 2 completed Not Available [facility] 11/15/2024 14:25:51 COVID-19, mRNA, LNP-S, bivalent, PF, 30 mcg/0.3 mL dose 2 completed Not Available [facility] 11/15/2024 14:25:51 Influenza, high-dose, quadrivalent, PF 3 completed [facility]ICE [place] [facility] 03/18/2023 18:24:30 Influenza, high-dose, trivalent, PF 5 completed [facility] [place] [facility] 06/16/2024 17:29:09 Past Encounters Encounter ID Performer Location Encounter Start Date Encounter Closed Date Diagnosis/Indication Diagnosis SNOMED-CT Code Diagnosis ICD10 Code Diagnosis Note [id number] Joshua Henderson MD [facility] [address] [place] [address] 11/15/2024 14:24:49 11/15/2024 15:01:50 Essential hypertension 16527409 I10 Osteoarthritis 202613836 M15.0 Arthritis 9640286 M15.0 Male hypogonadism 904494 06 E29.1 Influenza caused by Influenza A virus 698189999 J10.1 Right uppe r quadrant pain 892747690 R10.11 Hypoxia 871050832 R09.02 Obese class II 766346759 1 59320 E66.812 Health Concerns Section Related Observation LastModified by Organization Detai ls LastModified Time None Recorded Concern Status LastModified by Organization Details LastModified Time None Recorded Payers Encounter Date Sequence Insurance Name Policy Number Policy Erazo Covered Member ID Erazo Member ID Guarantor Name 11/15/2024 1 [facility] (MEDICARE REPLACEMENT/A DVANTAGE - HMO) [id number] Shen Mccullough [id number] Shen Mccullough Notes Date Note Type Note Provider Name and Address Organization Details Recorded Time 11/15/2024 text/html began friday 2 days ago with lung and cough...SOB..deborah gnosed with influenza A..no labs no chest xray..cough is excruciating.. Paula Morrow PA-C Attn: Accounting,[address] [place], [address], [facility] 11/15/2024 15:01:46
--- OUTSIDE RECORDS SUMMARY | 2024-11-15 15:36 | XMS_ITS | Data Portability ---
Author Organization [facility] Address [address] [facility] JAYCOB Garcia [address] Care Team Providers Care Family And Marriage Counsellor Name Role Phone PAULA MORROW Primary Care Provider [phone] Assessment No assessment recorded. Plan of Treatment Reminders Order Date Submit Date Provider Last Modified By Organization Details Last Modified Time Details Appointments ANY 15 2024 01:30P M Paula Morrow PA-C Not available Not available Not available Lab CBC 2024 025 jnanney [facility], [address] [place] [address], [address], 11/15/2024 14:57:08 CMP, serum or plasma 2024 025 jnanney [facility], [address] [place] [address], [address], 11/15/2024 14:57:08 lipid panel, serum 2024 025 jnanney [facility], [address] [place] [address], [address], 11/15/2024 14:57:08 CBC 2023 024 MASHA [facility], [address] [place] [address] [place], [address], 10/03/2023 06:17:51 CBC 2023 024 [email or web address] [facility], [address] [place] [address], [facility] [address], [place], [address], 09/24/2023 17:07:40 CMP, serum or plasma 2023 024 MASHA [facility], [address] [facility], [facility], [place], [address], 09/23/2023 06:18:01 lipid panel, serum 2023 024 MASHA [facility], [address] [facility], [address], [place], [address], 09/23/2023 06:18:00 testoster one, free + total, serum 2023 024 MASHA [facility], [address] [facility], [facility] 2, [place], [address], 09/23/2023 06:17:59 TSH + free T4, serum 2023 024 MASHA [facility], [address] [facility], [facility], [place], [address], 09/23/2023 06:17:59 Referral None recorded. Procedures None recorded. Surgeries None recorded. Imaging XR, chest, 2 view 2024 025 [facility] (Registration ), [address] [place], [address], 11/15/2024 15:05:28 US, abdomen - stat please 2024 025 [facility], [address] [place], [address], 11/15/2024 15:05:27 XR, chest, 2 view 2023 024 MASHA [facility] Lab, [address] [place], [address], 09/13/2023 18:01:12 Medication Orders duloxetin e 30 mg capsule,d elayed release 2024 025 [facility], [address], [place], [id number], 11/15/2024 14:57:08 diclofena c sodium 75 mg tablet,de layed release 2024 025 [facility]42012, [address], [place], [id number], 11/15/2024 14:57:08 testoster one cypionate 200 mg/mL intramusc ular oil 2024 025 [facility] #51533, [address], [place], [id number], 11/15/2024 14:57:08 benzonata te 200 mg capsule [address] [facility] #79398, [address], [place], [id number], 11/15/2024 14:57:33 Tamiflu 75 mg capsule [address] [facility] #83715, [address], [place], [id number], 11/15/2024 15:00:57 losartan 100 mg tablet 2024 025 [facility] #69801, [address], [place], [id number], 11/15/2024 14:57:08 Airsupra 90 mcg-80 mcg/actua tion HFA aerosol inhaler 2024 025 [facility] #87964, [address], [place], [id number], 11/15/2024 14:57:09 acetamino phen 300 mg-codein e 30 mg tablet 2024 025 [facility] #07000, [address], [place], [id number], 11/15/2024 14:57:09 duloxetin e 30 mg capsule,d elayed release 2024 025 [facility] #03044, [address], [place], [id number], 06/16/2024 17:22:36 atorvasta tin 40 mg tablet [address] [facility] #21945, [address], [place], [id number], 11/15/2024 14:34:08 diclofena c sodium 75 mg tablet,de layed release 2024 025 [facility] #47658, [address], [place], [id number], 06/16/2024 17:22:36 losartan 100 mg tablet 2024 025 [facility] #15596, [address], [place], [id number], 06/16/2024 17:22:37 omeprazol e 40 mg capsule,d elayed release 2024 025 [facility] #21751, [address], [place], [id number], 06/16/2024 17:22:36 aspirin 81 mg tablet,de layed release 2024 025 [facility] #15315, [address], [place], [id number], 06/16/2024 17:22:37 losartan 100 mg tablet [address] [facility] #93361, [address], [place], [id number], 10/02/2023 14:45:02 Patient TargetsNo targets recorded. Patient Instructions Encounter Date Encounter Id Patient Instructions Last Modified By Organization Details Last Modified Time 09/02/2023 [id number] A healthy lifestyle: care instructions jnanney Not available 09/02/2023 17:48:14 learning about high blood pressure jnanney Not available 09/02/2023 17:48:15 hypogonadism: care instructions jnanney Not available 09/02/2023 17:48:14 10/02/2023 [id number] A healthy lifestyle: care instructions jnanney Not available 10/02/2023 14:44:50 angina: care instructions jnanney Not available 10/02/2023 14:44:50 learning about high blood pressure jnanney Not available 10/02/2023 14:44:50 10/14/2023 [id number] A healthy lifestyle: care instructions jnanney Not available 10/14/2023 18:04:44 learning about high blood pressure jnanney Not available 10/14/2023 18:04:44 06/16/2024 [id number] influenza (flu) vaccine: care instructions jnanney Not available 06/16/2024 17:23:41 11/15/2024 [id number] A healthy lifestyle: care instructions jnanney Not available 11/15/2024 14:59:18 Reason for Referral None Reported. Results Created Date Observation Date Name Description Value Unit Range Abnormal Flag Note LastModifiedBy Organization Detail LastModifiedTime 09/16/19 24 09/18/2023 TESTO STERO NE,FR EE AND TOTAL testosterone 1068 NG/dL 264-91 6 above high normal Adult male refer ence inter darleen is based on a popul ation of healt hy nonob roly males (BMI <30) betwe en 19 and 39 years old. Gallito epstein, et.al . JCEM 2017, 102;1 161-1 173. PMID: 47517 103. Not Available [facility] [address] [place] [address], [place], [address], 09/23/2023 06:17:59 09/16/19 24 09/22/2023 TESTO STERO NE,FR EE AND TOTAL free testosterone (direct) 14.1 pg/mL 6.6-18 .1 Not Available [address], [address], 09/23/2023 06:17:59 09/16/1909/18/2023 TSH+F REE T4 TSH 1.740 uIU/m L 0.450- 4.500 Not Available [address], [address], 09/23/2023 06:17:59 09/16/1909/18/2023 TSH+F REE T4 T4,free(dire ct) 1.08 NG/dL 0.82-1 .77 Not Available [address], [address], 09/23/2023 06:17:59 09/16/19 24 09/18/2023 LIPID PANEL cholesterol, total 223 mg/dL 100-19 9 above high normal Not Available [address], [address], 09/23/2023 06:18:00 09/16/1909/18/2023 LIPID PANEL triglyceride s 193 mg/dL 0-149 above high normal Not Available [address], [address], 09/23/2023 06:18:00 09/16/1909/18/2023 LIPID PANEL HDL cholesterol 47 mg/dL >39 Not Available [address], [address], 09/23/2023 06:18:00 09/16/1909/18/2023 LIPID PANEL VLDL cholesterol yessenia 35 mg/dL 5-40 Not Available [address], [address], 09/23/2023 06:18:00 09/16/19 24 09/18/2023 LIPID PANEL LDL chol calc ([facility]) 141 mg/dL 0-99 above high normal Not Available [address], [address], 09/23/2023 06:18:00 09/16/19 24 09/18/2023 COMP. METAB OLIC PANEL (14) glucose 143 mg/dL 70-99 above high normal Not Available [address], [address], 09/23/2023 06:18:01 09/16/19 24 09/18/2023 COMP. METAB OLIC PANEL (14) BUN 13 mg/dL 8-27 Not Available [address], [address], 09/23/2023 06:18:01 09/16/19 24 09/18/2023 COMP. METAB OLIC PANEL (14) creatinine 1.27 mg/dL 0.76-1 .27 Not Available [address], [address], 09/23/2023 06:18:01 09/16/19 24 09/18/2023 COMP. METAB OLIC PANEL (14) eGFR 62 mL/mi n/1.7 3 >59 Not Available [address], [address], 09/23/2023 06:18:01 09/16/19 24 09/18/2023 COMP. METAB OLIC PANEL (14) BUN/creatini ne ratio 10 10-24 Not Available [address], [address], 09/23/2023 06:18:01 09/16/19 24 09/18/2023 COMP. METAB OLIC PANEL (14) sodium 137 mmol/ L 134-14 4 Not Available [address], [address], 09/23/2023 06:18:01 09/16/19 24 09/18/2023 COMP. METAB OLIC PANEL (14) potassium 4.9 mmol/ L 3.5-5. 2 Not Available [address], [address], 09/23/2023 06:18:01 09/16/19 24 09/18/2023 COMP. METAB OLIC PANEL (14) chloride 99 mmol/ L 96-106 Not Available [address], [address], 09/23/2023 06:18:01 09/16/19 24 09/18/2023 COMP. METAB OLIC PANEL (14) carbon dioxide, total 19 mmol/ L 20-29 below low normal Not Available [address], [address], 09/23/2023 06:18:01 09/16/19 24 09/18/2023 COMP. METAB OLIC PANEL (14) calcium 9.7 mg/dL 8.6-10 .2 Not Available [address], [address], 09/23/2023 06:18:01 09/16/19 24 09/18/2023 COMP. METAB OLIC PANEL (14) protein, total 6.9 g/dL 6.0-8. 5 Not Available [address], [address], 09/23/2023 06:18:01 09/16/19 24 09/18/2023 COMP. METAB OLIC PANEL (14) albumin 4.4 g/dL 3.9-4. 9 Not Available [address], [address], 09/23/2023 06:18:01 09/16/19 24 09/18/2023 COMP. METAB OLIC PANEL (14) globulin, total 2.5 g/dL 1.5-4. 5 Not Available [address], [address], 09/23/2023 06:18:01 09/16/19 24 09/18/2023 COMP. METAB OLIC PANEL (14) A/G ratio 1.8 1.2-2. 2 Not Available [address], [address], 09/23/2023 06:18:01 09/16/19 24 09/18/2023 COMP. METAB OLIC PANEL (14) bilirubin, total 0.6 mg/dL 0.0-1. 2 Not Available [address], [address], 09/23/2023 06:18:01 09/16/19 24 09/18/2023 COMP. METAB OLIC PANEL (14) alkaline phosphatase 60 IU/L 44-121 Not Available [address], [address], 09/23/2023 06:18:01 09/16/19 24 09/18/2023 COMP. METAB OLIC PANEL (14) AST (SGOT) 47 IU/L 0-40 above high normal Not Available [address], [address], 09/23/2023 06:18:01 09/16/19 24 09/18/2023 COMP. METAB OLIC PANEL (14) ALT (SGPT) 62 IU/L 0-44 above high normal Not Available [address], [address], 09/23/2023 06:18:01 09/16/19 24 09/18/2023 CARDI OVAMARISA RYAN REPOR T interpretati on Note Suppl lauren ortiz is avail able. Not Available [address], [place], [address], 09/23/2023 06:18:02 09/16/19 24 09/18/2023 CATHERINE Comer pdf . Not Available [facility] [id number] [place], [address], 09/23/2023 06:18:02 10/02/19 24 10/03/2023 CBC, PLATE LET, NO DIFFE RENTI AL WBC 13.3 x10e3 /uL 3.4-10 .8 above high normal Not Available [facility] ([facility]) [address] [place], [address], 10/03/2023 06:17:51 10/02/19 24 10/03/2023 CBC, PLATE LET, NO DIFFE RENTI AL RBC 5.73 x10e6 /uL 4.14-5 .80 Not Available [facility] ([facility]) [address] [place], [address], 10/03/2023 06:17:51 10/02/1910/03/2023 CBC, PLATE LET, NO DIFFE RENTI AL hemoglobin 17.8 g/dL 13.0-1 7.7 above high normal Not Available [facility] ([facility]) [address] [place], [address], 10/03/2023 06:17:51 10/02/1910/03/2023 CBC, PLATE LET, NO DIFFE RENTI AL hematocrit 54.9 % 37.5-5 1.0 above high normal Not Available [facility] ([facility]) [address] [place], [address], 10/03/2023 06:17:51 10/02/19 24 10/03/2023 CBC, PLATE LET, NO DIFFE RENTI AL MCV 96 fL 79-97 Not Available [facility] ([facility]) [address] [place], [address], 10/03/2023 06:17:51 10/02/19 24 10/03/2023 CBC, PLATE LET, NO DIFFE RENTI AL MCH 31.1 pg 26.6-3 3.0 Not Available [facility] ([facility]) [address] [place], [address], 10/03/2023 06:17:51 10/02/19 24 10/03/2023 CBC, PLATE LET, NO DIFFE RENTI AL MCHC 32.4 g/dL 31.5-3 5.7 Not Available [facility] ([facility]) [address] [place], [address], 10/03/2023 06:17:51 10/02/19 24 10/03/2023 CBC, PLATE LET, NO DIFFE RENTI AL RDW 13.0 % 11.6-1 5.4 Not Available [facility] ([facility]) [address] [place], [address], 10/03/2023 06:17:51 10/02/1910/03/2023 CBC, PLATE LET, NO DIFFE RENTI AL platelets 309 x10e3 /uL 150-45 0 Not Available [facility] ([facility]) [address] [place], [address], 10/03/2023 06:17:51 11/14/1911/13/2024 Fibri n D-dim er FEU [Mass /volu me] in Plate let poor plasm a fibrin D-dimer feu [mass/volume ] in platelet poor plasma 0.47 text: <0.50 mcg/mL feu Not Available Not Available 11/15/2024 15:08:21 11/14/1911/13/2024 Fibri n D-dim er FEU [Mass /volu me] in Plate let poor plasm a Unknown Analyte The FDA has approv ed this method to exclud e the diagno sis of DVT and/or PE at the cutoff value of <0.50 mcg/mL FEU. Not Available Not Available 15:08:21 11/14/19 25 11/13/2024 Fibri n D-dim er FEU [Mass /volu me] in Plate let poor plasm a interpretati on and review of laboratory results Normal Not Available Not Available 02/2025 15:08:21 11/14/19 25 11/13/2024 Influ alissa virus A and B and SARS- CoV-2 (COVI D-19) and Respi rator y syncy tial virus RNA panel - Respi rator y syste m speci men by ADEEL with probe detec tion influenza virus A RNA [presence] in upper respiratory specimen by ADEEL with probe detection Positi ve text: negati ve, error abnormal Not Available Not Available 11/15/2024 15:08:21 11/14/19 25 11/13/2024 Influ alissa virus A and B and SARS- CoV-2 (COVI D-19) and Respi rator y syncy tial virus RNA panel - Respi rator y syste m speci men by ADEEL with probe detec tion influenza virus B RNA [presence] in upper respiratory specimen by ADEEL with probe detection Negati ve text: negati ve Not Available Not Available 11/15/2024 15:08:21 11/14/19 25 11/13/2024 Influ alissa virus A and B and SARS- CoV-2 (COVI D-19) and Respi rator y syncy tial virus RNA panel - Respi rator y syste m speci men by ADEEL with probe detec tion respiratory syncytial virus RNA [presence] in respiratory system specimen by ADEEL with probe detection Negati ve text: negati ve Not Available Not Available 11/15/2024 15:08:21 11/14/19 25 11/13/2024 Influ alissa virus A and B and SARS- CoV-2 (COVI D-19) and Respi rator y syncy tial virus RNA panel - Respi rator y syste m speci men by ADEEL with probe detec tion sars-cov-2 (covid-19) N gene [presence] in specimen by ADEEL with probe detection NOT DETECT ED text: (refer ence range for this test IS not detect ed) This test was perfo rmed by a Kyle orosco Trans cript ion PCR Metho d. Not Available Not Available 11/15/2024 15:08:21 11/14/19 25 11/13/2024 Influ alissa virus A and B and SARS- CoV-2 (COVI D-19) and Respi rator y syncy tial virus RNA panel - Respi rator y syste m speci men by ADEEL with probe detec tion interpretati on and review of laboratory results Abnorm al Not Available Not Available 15:08:21 09/13/19 24 09/12/2023 XR, chest , 2 view No observ ation record ed. [facility] [address] [place], [address], 09/15/2023 11:17:32 11/16/19 25 11/13/2024 XR, ribs, unila teral No observ ation [facility] ed. [facility] [address] [place], [address], 11/15/2024 15:45:14 Result Notes None recorded. Problems Name Problem SNOMED Code Status Onset Date Resolution Date Notes Provider Name and Address Organization Details Recorded Time Atypical chest pain 949278935 Active Leticia Haddad [place] null, [place] - [facility] 6 16:13:32 Angina pectoris 732436653 Active Leticia Haddad [place] [facility] 6 16:13:32 Dyspnea on exertion 02926749 Active Leticia Haddad [place] [facility] 16:13:32 Knee joint painful on movement 797172002 Active Leticia Haddad [place] [facility] 16:13:32 Chronic arthropathy 31145983 Active Paula Morrow PA-C Attn: Riki g,[address] [place], [address] [facility] [place] [facility] 16:41:37 Fatigue 10828069 Active Paula Morrow PA-C Attn: Riki pacheco,[address], [place], [address], [facility] - [facility] 6 16:41:37 Problem Notes None recorded. Procedures Surgical History Date Name Laterality Status Provider Name and Address Organization Details Recorded Time colonoscopy completed Dior Begum [place] - [facility] 07/22/2022 12:32:58 Imaging Results None [...] Available Not Avai lable Vitals Date Recorded Body height Body mass index (BMI) Body weight Oxygen saturation Oxygen saturation in Arterial blood by Pulse oximetry Heart rate Systolic blood pressure Diastolic blood pressure Provider Name and Address Organization Details Last Updated DateTime 5 185.42 cm 38.7 kg/m2 623440. 26 g 98 % 98 % 76 /min 162 mm[Hg] 82 mm[Hg] Avis Guido MA [facility] 5 17:07:21 Date Recorded Body height Body mass index (BMI) Body weight Oxygen saturation Oxygen saturation in Arterial blood by Pulse oximetry Heart rate Respiratory rate Body temperature Systolic blood pressure Diastolic blood pressure Provider Name and Address Organization Details Last Updated DateTime 4 185.42 cm 38.8 kg/m2 758537. 16 g 96 % 96 % 83 /min 16 /min 97.8 [degF] 153 mm[Hg] 90 mm[Hg] Miguelina Newby MA [facility] 4 17:35:01 Date Recorded Body height Body mass index (BMI) Body weight Oxygen saturation Oxygen saturation in Arterial blood by Pulse oximetry Heart rate Systolic blood pressure Diastolic blood pressure Provider Name and Address Organization Details Last Updated DateTime 4 185.42 cm 39.5 kg/m2 540959. 52 g 99 % 99 % 65 /min 162 mm[Hg] 90 mm[Hg] Avis Guido MA [facility] 4 14:14:16 Date Recorded Body height Body mass index (BMI) Body weight Heart rate Oxygen saturation Oxygen saturation in Arterial blood by Pulse oximetry Systolic blood pressure Diastolic blood pressure Provider Name and Address Organization Details Last Updated DateTime 4 185.42 cm 38.5 kg/m2 701056. 97 g 79 /min 96 % 96 % 138 mm[Hg] 78 mm[Hg] Avis Guido MA [facility] 4 17:44:35 Date Recorded Systolic blood pressure Diastolic blood pressure Provider Name and Address Organization Details Last Updated DateTime 11/15/2024 138 mm[Hg] 78 mm[Hg] Paula Morrow PA-C Attn: Accounting,[address] [facility], [place], [address], [facility] 11/15/2024 14:59:01 Date Recorded Body height Body mass index (BMI) Body weight Oxygen saturation Oxygen saturation in Arterial blood by Pulse oximetry Heart rate Provider Name and Address Organization Details Last Updated DateTime 5 185.42 cm 38 kg/m2 659213. 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 Never used electronic cigarettes Information not available 01/30/2022 What is your exercise level? None Information not available 09/03/2022 Mental Status Question Answer Note LastModified by Organization D etails LastModified Time Do you feel stressed (tense, restless, nervous, or anxious, or unable to sleep at night)? [id number] Information not available 12/13/2022 Family History Relationship [...] Response Coronary Artery Disease N Other N Atrial Fibrillation N High Blood Pressure Y Thyroid Problems N Kidney or Bladder Problems N GI Problems N Depression N COPD N Blood Clots N Skin Problems N Eating Disorder N Anemia N Heart Attack ([place]) N Anxiety Disorder N Diabetes N Muscle, [...] virus, quadrivalent, preservative 6 completed Not Available [facility] 06/26/2019 02:50:31 Tdap 0 completed JUSTICE Gam[place], [place] [facility] 03/04/2023 09:52:56 Influenza, adjuvanted, quadrivalent, PF 1 completed JUST[place] [facility] 03/18/2023 09:42:54 COVID-19, mRNA, LNP-S, PF, 30 mcg/0.3 mL dose 1 completed JUST[place] [facility] 03/18/2023 09:42:54 Influenza, adjuvanted, quadrivalent, PF 2 completed Not Available [facility] 11/15/2024 14:25:51 COVID-19, mRNA, LNP-S, bivalent, PF, 30 mcg/0.3 mL dose 2 completed Not Available [facility] 11/15/2024 14:25:51 Influenza, high-dose, quadrivalent, PF 3 completed JUSTICE [place] [facility] 03/18/2023 18:24:30 Influenza, high-dose, trivalent, PF 5 completed JUST[place] [facility] 06/16/2024 17:29:09 Past Encounters Encounter ID Performer Location Encounter Start Date Encounter Closed Date Diagnosis/Indication Diagnosis SNOMED-CT Code Diagnosis ICD10 Code Diagnosis Note [id number] KASIA Metcalf [facility] [address] [place] [address] 05/18/2014 14:31:31 05/19/2014 15:15:33 Atypical chest pain 970383296 [id number] Paula Morrow PA-C [facility] [address] [place] [address] 05/26/2014 19:03:51 05/30/2014 11:58:07 Atypical chest pain 778302679 Dyspnea on exertion 58480302 [id number] Paula Morrow PA-C [facility] [address] [place] [address] 09/22/2015 16:49:54 09/25/2015 09:37:50 Knee joint painful on movement 632434278 M25.171 [id number] KASIA Metcalf [address] [place] [address] 03/21/2016 16:02:53 03/21/2016 17:12:58 Chronic arthropathy 13957082 M12.9 Fatigue 50444956 R53.83 [id number] KASIA Metcalf [facility] [address] [place] [address] 03/28/2016 10:02:34 03/28/2016 11:33:55 Fatigue 22237989 R53.83 Arthritis 6148112 M19.90 Administra tion of influenza vaccine 47706974 Z23 [id number] KASIA Metcalf [facility] [address] [place] [address] 04/16/2016 18:04:52 04/16/2016 18:55:20 Hypogonadism 25348204 E29.1 [id number] Joshua Henderson MD [facility] [address] [place] [address] 11/10/2020 15:23:47 11/13/2020 05:31:33 Fatigue 37520335 R53.83 Dyspnea on exertion 6084 5006 R06.09 Body mass index 30+ - obesity 867468900 Z68.36 Male hypogonadism 662252 06 E29.1 Screening for malignant neoplasm of prostate 417831429 Z12.5 [id number] Paula Morrow PA-C [facility] [address] [place] [address] 01/30/2022 10:28:35 01/30/2022 11:56:08 Gastroesophageal reflux disease without esophagitis 363387746 K21.9 Screening for malignant neoplasm of colon 069296894 Z12.[address] [facility] th examination 914541152 Z00.00 [id number] Paula Morrow PA-C [facility] [address] [place] [address] 09/03/2022 10:10:25 09/04/2022 12:36:28 Adult health examination 599950361 Z00.00 Overweight 732440231 E66 .3 [id number] Joshua Henderson MD [facility] [address] [place] [address] 12/13/2022 10:23:26 12/16/2022 09:53:35 Essential hypertension 50265542 I10 Overweight 580948764 E66 .3 Unexplaine d weight loss 686052100 R63.4 Hypogonadism 49291527 E2 9.1 Nausea 710188090 R11.0 [id number] Joshua Henderson MD [facility] [address] [place] [address] 02/18/2023 16:46:17 02/20/2023 15:27:21 Chronic low back pain 023065719 M54.51 Overweight 851019380 E66 .3 [id number] Paula Morrow PA-C [facility] [address] [place] [address] 03/04/2023 18:28:31 03/05/2023 14:13:58 Lumbar radiculopathy 369552529 M54.16 [id number] Paula Morrow PA-C [facility] [address] [place] [address] 03/18/2023 17:57:05 03/19/2023 15:59:56 Lumbar radiculopathy 951583906 M54.16 Overweight 700992546 E66 .3 Administra tion of influenza vaccine 91496235 Z23 [id number] Paula Morrow PA-C [facility] [address] [place] [address] 09/02/2023 17:28:07 09/05/2023 00:30:53 Male hypogonadism 69920496 E29.1 Essential hypertension 30939419 I10 Muscle pain 69235810 M79 .18 Overweight 539365792 E66 .3 Fatigue 22396378 R53.83 Exposure to asbestos 699 758210 Z77.472 [id number] Joshua Henderson MD [facility] [address] [place] [address] 10/02/2023 14:01:31 10/09/2023 12:43:37 Angina pectoris 213312578 I20.89 Dyspnea on exertion 6084 5006 R06.09 Essential hypertension 43360720 I10 Overweight 508956426 E66 .3 [id number] Joshua Henderson MD [facility] [address] [place] [address] 10/14/2023 17:38:20 10/15/2023 12:50:06 Essential hypertension 33612607 I10 Mixed hyperlipidemia 267 762547 E78.2 wants to cont diet Overweight 116640185 E66 .3 [id number] Joshua Henderson MD [facility] [address] [place] [address] 06/16/2024 16:45:12 06/18/2024 10:32:33 Male hypogonadism 20768060 E29.1 Arthritis 0678113 M15.0 Gastroesop hageal reflux disease without esophagitis 551500781 K21.9 Osteoarthritis 400100912 M15.0 Essential hypertension 87602507 I10 Coronary arteriosclerosis 55323890 I25.10 Mixed hyperlipidemia 267 464857 E78.2 wants to cont diet Administra tion of influenza vaccine [id number] Z23 [id number] Joshua Henderson MD [facility] [address] [place] [address] 11/15/2024 14:24:49 11/15/2024 15:01:50 Essential hypertension 66240932 I10 Osteoarthritis 588012774 M15.0 Arthritis 1673955 M15.0 Male hypogonadism 095105 06 E29.1 Influenza caused by Influenza A virus 222179969 J10.1 Right uppe r quadrant pain 700599189 R10.11 Hypoxia 296080752 R09.02 Obese class II 307936829 1 02807 E66.812 Health Concerns Section Related Observation LastModified by Organization Detai ls LastModified Time None Recorded Concern Status LastModified by Organization Details LastModified Time None Recorded Advance Directives Directive None Recorded Payers Encounter Date Sequence Insurance Name Policy Number Policy Erazo Covered Member ID Erazo Member ID Guarantor Name 09/02/2023 1 [facility] (MEDICARE REPLACEMENT/A DVANTAGE - HMO) [id number] Shen Mccullough [id number] Shen Mccullough 10/02/2023 1 [facility] (MEDICARE REPLACEMENT/A DVANTAGE - HMO) [id number] Shen Mccullough [id number] Shen Mccullough 10/14/2023 1 [facility] (MEDICARE REPLACEMENT/A DVANTAGE - HMO) [id number] Shen Mccullough [id number] Shen Mccullough 06/16/2024 1 [facility] (MEDICARE REPLACEMENT/A DVANTAGE - HMO) [id number] Shen Mccullough [id number] Shen Mccullough 11/15/2024 1 [facility] (MEDICARE REPLACEMENT/A DVANTAGE - HMO) [id number] Shen Mccullough [id number] Shen Mccullough Notes Date Note Type Note Provider Name and Address Organization Details Recorded Time 09/02/2023 text/html having lots of muscle spasms...quit taking everything...sleep has been bad..has a cough and worked in an asbestos 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 Paula Morrow PA-C Attn: Accounting, [address] [facility], [place], [address], [facility] 10/02/2023 14:45:39 10/14/2023 text/html go over labs...s ee testosterone and lipids and liver looks fatty...reports hasnt taken testosterone in 3 weeks... Paula Morrow PA-C Attn: Accounting, [address] [facility], [place], [address], [facility] 10/14/2023 18:06:53 11/15/2024 text/html began friday 2 days ago with lung and cough...SOB..diagn osed with influenza A..no labs no chest xray..cough is excruciating.. Paula Morrow PA-C Attn: Accounting, [address] [facility], [place], [address], [facility] 11/15/2024 15:01:46
== END 2024-11-15 14:21 | disposition home or self-care (01) ==
PROVIDERS: PCP Physician Assistant; Visit Provider Physician Assistant
DX: J10.1 Influenza due to other identified influenza virus with other respiratory manifestations (principal); K76.0 Fatty (change of) liver, not elsewhere classified
CPT/HCPCS: 71046; 76700

== ENCOUNTER 2024-11-16 15:58 | Emergency (ER) | payer MEDICARE, SELFPAY ==
[2024-11-16] VITALS (19 sets, daily range): BP systolic 115–139; BP diastolic 75–87; PULSE 79–100; RESP 14–20; TEMP 36.7; O2SAT 93–97
--- NOTE | ~2024-11-16 | XR_ITS ---
EXAMINATION: XR chest 2V 11/16/2024 17:15 INDICATION: Loss of consciousness PROCEDURE: 2 view chest COMPARISON: 11/15/2024 FINDINGS: The lungs are clear. The cardiomediastinal silhouette is within normal limits. There are no pleural effusions. There is no pneumothorax suspected. IMPRESSION: 1: NO ACUTE CARDIOPULMONARY DISEASE. Reviewed, dictated and finalized at location B.
--- NOTE | ~2024-11-16 | CT_ITS ---
CT brain wo con Ordering provider: Carl Mckinley MD History: 69 years Male with . loc . Comparison: None. Technique: CT of the head without contrast. Radiation reduction technique utilized.The dose-length product was 681 mGy-cm. FINDINGS: Portable BRAIN PARENCHYMA AND CSF SPACES: No midline shift, mass effect or hemorrhage. The brain parenchyma a nd CSF spaces are otherwise normal. VISUALIZED PARANASAL SINUSES: Well aerated. MASTOIDS: Well aerated. BONES: The bones appear intact. SOFT TISSUES: Visualized nasopharynx is normal. Scalp hematoma in the left occipital area. Otherwise Superficial soft tissues are normal. IMPRESSION: No acute intracranial findings. Reviewed, dictated and finalized at location A.
--- NOTE | ~2024-11-16 | CT_ITS ---
CT abdomen pelvis w con Ordering provider: Carl Mckinley MD History: 69 years Male with . jones sign+/abdo pain . Comparison: None. Technique: CT abdomen and pelvis with IV and without oral contrast. Automated exposure control and it erative reconstruction technique were employed. The dose-length product was 1623.63 mGy-cm. 100 mL Om nipaque 350 was given IV. Findings: VISUALIZED LOWER CHEST: Minimal dependent atelectatic changes. UPPER ABDOMINAL ORGANS: Liver: Mild fat infiltration. Gallbladder: Normal. Spleen: Normal. Stomach/duodenum: Normal. Pancreas: Normal. Adrenals: Normal. Kidneys: Normal. PELVIC ORGANS: The bladder is underfilled with thickened wall. Evaluation for cystitis advised. BOWEL AND MESENTERY: Colon: No evidence of diverticulitis.. Normal appendix. Small Bowel: Normal. No obstruction. Peritoneum/mesentery: No free air or free fluid. No mesenteric lymphadenopathy. RETROPERITONEUM: Mild atheromatous disease of the abdominal aorta. No retroperitoneal lymphadenopat hy. MUSCULOSKELETAL: Superficial soft tissues: The superficial soft tissues are normal. Bones: Age appropriate degenerative changes of the spine. . Symphysitis. Bilateral sacroiliitis. Levoscoliosis. IMPRESSION: 1. No evidence of appendicitis, diverticulitis or intestinal obstruction. No evidence of pancreatiti s or renal stones. 2. Fat infiltration of the liver. Reviewed, dictated and finalized at location A. IMPRESSION: 1. No evidence of appendicitis, diverticulitis or intestinal obstruction. No e vidence of pancreatitis or renal stones. 2. Fat infiltration of the liver.
--- NOTE | 2024-11-16 15:59 | ED_ITS ---
HPI - Abdominal Pain General Chief Complaint: Unspecified Stated Complaint: weakness Time Seen by Provider: 11/16/24 15:58 Source: patient and family Mode of arrival: ambulatory Limitations: no limitations History of Present Illness HPI narrative: Patient is a 69-year-old male who was on a cruise recently and found to have influenza and placed on Tamiflu at a local emergency room. He was coughing and sustained some rib pains as well. Further he had a right flank /lower back ecchymosis for the past 2 days. He then had a syncopal episode today prior to arrival to get a CT scan for the ecchymosis as an outpatient. He came to the ER for evaluation. He is having abdominal pain in the right flank region. also some blood in stool on the toilet paper bright red. He was planned outpatient CT today but came to the ER instead due to the near syncopal / syncopal event. He had further workup in the last 24 hours as an outpatient and we will review the studies. MD elicited complaint: abdominal pain ( right) and flank pain ( Right) Pertinent past history: other ( hypertension, hyperlipidemia) Onset (ago): day(s) ( over the past 2 weeks all of this has come together and specifically in the past 3 days) Pain Consistency: constant Location: RUQ, RLQ and R flank Severity: moderate Pain scale (0-10): 5 Quality: sharp Radiation: none Migration to: no migration Exacerbating factors: movement Relieving factors: rest Context: confirms foreign travel (cruise) and confirms other ( patient had flu positive after being on a cruise. Patient had right flank pain and ecchymosis. Patient had near syncopal or syncopal episode today.) Associated symptoms: hematochezia ( Only on the toilet paper) and syncope Treatments prior to arrival: other ( none) Related Data Home Medications ?Medication ?Instructions ?Recorded ?Confirmed ?Last Taken ?Type benzonatate 200 mg capsule mg PO 11/16/24 Unknown History losartan 100 mg tablet mg 11/16/24 Unknown History omeprazole 40 mg capsule,delayed mg 11/16/24 Unknown History release oseltamivir 75 mg capsule mg 11/16/24 Unknown History Allergies Allergy/AdvReac Type Severity Reaction Status Date / Time No Known Allergies Allergy Verified 11/16/24 16:05 Review of Systems 2 Review of Systems: All systems reviewed & are unremarkable except as noted in HPI and below Constitutional: Constitutional: Reports no additional constitutional complaints Eyes: Eyes: Reports no additional eye complaints ENT: Reports system reviewed and no additional complaints, except as documented Cardiovascular: Cardiovascular: Reports no additional cardiovascular complaints Respiratory: Respiratory: Reports no additional respiratory complaints Gastrointestinal: Gastrointestinal: Reports no additional gastrointestinal complaints Genitourinary: Genitourinary: Reports no additional male genitourinary complaints Musculoskeletal: Musculoskeletal: Reports no additional musculoskeletal complaints Integumentary/Breasts: Skin/Breast: Reports system reviewed and no additional complaints, except as docu Neurologic: Reports system reviewed and no additional complaints, except as documented Psychiatric: Psychiatric: Reports no additional psychiatric complaints Endocrine: Endocrine: Reports no additional endocrine complaints Hematologic/Lymphatic: Hematologic/Lymphatic: Reports no additional hematologic/lymphatic complaints Allergic/Immunologic: Allergic/Immunologic: Reports no additional allergic/immunologic complaints Exam 2 Const: General: ill appearing Nutritional Appearance: well nourished O rientation/consciousness: patient oriented x3 Limitations: no limitations HENMT: Head: normal to inspection Ears: external ears normal F gabe/Nose/Sinus: Normal external nose present Eyes: Conjunctivae: conjunctivae normal Pupils: Equal, round and reactive pupils present EOM: EOMs intact bilaterally Neck: Neck: normal visual inspection Chest: Chest palpation & inspection: normal inspection of the chest Resp: Effort & Inspection: normal respiratory effort and not labored A uscultation: clear to auscultation bilaterally and no crackles Cardio: Rate: regular rate Rhythm: regular rhythm Heart sounds: no murmurs GI: Inspection: non-distended GI Palp: Yes Soft to palpation and No Tenderness to palpation present (GI) Auscultation: normal bowel sounds : General: Yes bladder normal to palpation Back/Spine/Pelvis: Back: no CVA tenderness Skin: General skin exam: No normal color ( ecchymosis right flank) Rashes: no rashes Wounds: no wounds Neuro: General: patient oriented x3 Cranial nerves: Yes Nystagmus not present Speech: normal speech Gait exam (Neuro): Normal gait present O ther: fast exam negative, NIH is 0, GCS is 15 Extrem: General: normal to inspection Psych: Mental Status: mental status grossly normal Affect: normal affect Attitude: cooperative Course Vital Signs Vital signs: Vital Signs Temperature 36.7 C 11/16/24 16:00 Pulse Rate 87 11/16/24 16:00 Respiratory Rate 20 11/16/24 16:00 Blood Pressure 139/87 11/16/24 16:00 Pulse Oximetry 95 11/16/24 16:00 Oxygen Delivery Room Air 11/16/24 16:00 Temperature 36.7 C 11/16/24 16:00 Pulse Rate 100 11/16/24 18:30 Respiratory Rate 19 11/16/24 16:46 Blood Pressure 135/76 11/16/24 18:16 Pulse Oximetry 93 11/16/24 18:30 Oxygen Delivery Room Air 11/16/24 16:13 MDM - Abdominal Pain MDM Narrative Medical decision making narrative: patient is a 69-year-old male with a multi illness set up over the past few weeks. We will proceed with a workup to rule out internal bleeding and neurological evaluation. Medical Records Attestation: I reviewed the patient's medical records. Lab Data Attestation: I reviewed the patient's lab results. 11/16/24 16:16 11/16/24 16:16 Labs: Lab Results 11/16/24 11/16/24 Range/Units 16:04 16:16 WBC 4.4 L (4.8-10.8) K/mm3 RBC 4.83 (4.70-6.10) M/mm3 Hgb 15.2 (12.4-15.3) g/dL Hct 47.2 H (37.0-46.0) % MCV 97.7 (78.0-102.0) fL MCH 31.5 H (27.0-31.0) pg MCHC 32.2 (32-36) g/dL RDW 13.9 (11.6-14.4) % Plt Count 249 (150-420) K/mm3 MPV 9.2 (8.7-11.0) fl Immature Gran % (Auto) 0.5 H (0.0-0.0) % Neut % (Auto) 56.0 (50.0-70.0) % Lymph % (Auto) 28.6 (18.0-42.0) % [place] % (Auto) 11.9 H (2.0-11.0) % Eos % (Auto) 2.1 (1.0-6.0) % Baso % (Auto) 0.9 (0.0-1.0) % Lymph # (Auto) 1.25 (1.10-4.50) K/mm3 [place] # (Auto) 0.52 (0.10-0.90) K/mm3 Eos # (Auto) 0.09 (0.02-0.50) K/mm3 Baso # (Auto) 0.04 (0.00-0.10) K/mm3 Abs Immat Gran (auto) 0.02 H (0.00-0.00) K/mm3 Absolute Neuts (auto) 2.45 (1.70-7.20) K/mm3 Absolute Nucleated RBC 0.00 (0.00-0.00) K/mm3 Nucleated RBC % 0.0 (0-0.0) % PT 10.3 (9.50-12.1) Seconds INR 0.9 APTT 25.1 (23.9-30.70) Sec Sodium 137 (137-145) mmol/L Potassium 5.1 H (3.4-5.0) mmol/L Chloride 103 (98-107) mmol/L Carbon Dioxide 28 (22-30) mmol/L Anion Gap 6 (4-12) mmol/L BUN 23 H (9-20) mg/dL Creatinine 1.48 H (0.7-1.3) mg/dL Estim Creat Clear Calc 60 ml/min Estimated GFR 47 L (59 - ) Glucose 113 H (65-110) mg/dL Calculated Osmolality 288 (285-295) mOsm/kg Lactic Acid 1.2 (0.4-2.0) mmol/L Calcium 8.9 (8.4-10.2) mg/dL Total Bilirubin 0.9 (0.2-1.3) mg/dL AST 95 H (17-59) U/L ALT 110 H (6-50) U/L Alkaline Phosphatase 76 (38-126) U/L Troponin I < 0.012 (0.000-0.034) ng/mL Total Protein 7.0 (6.3-8.2) g/dL Albumin 4.6 (3.5-5.1) g/dL Lipase 157 (23-300) U/L Urine Color Yellow (Yellow) Urine Appearance Cloudy A (Clear) Urine pH 6.0 (5.0-8.0) Ur Specific [place] >= 1.030 H (1.010-1.020) Urine Protein Trace H (Negative) Urine Glucose (UA) Negative (Negative) Urine Ketones Trace H (Negative) Ur Blood (Man) Negative (Negative) Urine Nitrate Negative (Negative) Urine Bilirubin 1+ H (Negative) Urine Urobilinogen 1.0 (0.2-1.0) mg/dL Leukocyte Esterase Rfl Trace H (Negative) ELIZABETH/UL Urine RBC None seen (0-2) /hpf Urine WBC 0-3 (0-3) /hpf Ur Squamous Epith Cells Few (Few) /hpf Amorphous Sediment Few H (None) Urine Bacteria 1+ H (None) /hpf Imaging Data Attestation: I personally reviewed and interpreted this imaging study as follows: Radiologist's impression: ITS Impressions Head CT 11/16/24 17:25 IMPRESSION: No acute intracranial findings. Chest X-Ray 11/16/24 17:27 IMPRESSION: 1: NO ACUTE CARDIOPULMONARY DISEASE. Abdomen/Pelvis CT 11/16/24 18:06 IMPRESSION: 1. No evidence of appendicitis, diverticulitis or intestinal obstruction. No evidence of pancreatitis or renal stones. 2. Fat infiltration of the liver. ultrasound done yesterday shows IMPRESSION: 1.. Fat infiltration of the liver. Hypoechoic area around the upper pole of the kidney mid and inferior to the liver which may be a hematoma versus prominent perirenal fat versus an adrenal mass. Further evaluation and follow-up advised. chest x-ray done yesterday was negative for acute process ECG Data EKG #1: Attestation: I personally reviewed and interpreted this ECG as follows: ECG completion date: 11/16/24 ECG completion time: 16:17 normal rate, sinus rhythm, no ectopy, no ST changes ( Early repolarization appreciated), normal QRS, normal QT and NL axis Discharge Plan Discharge Clinical Impression: Medication side effect, PADDY (acute kidney injury) Patient Disposition: Home Condition: Stable Instructions: Medication Safety for Older Adults (ED) Additional Instructions: Please stop Tamiflu and oxycodone. One or both of these are causing your symptoms most likely. drink plenty of water intake to replace mild dehydration. Patient Language: Lithuanian Prescriptions: No Action benzonatate 200 mg capsule PO omeprazole 40 mg capsule,delayed release(DR/EC) oseltamivir 75 mg capsule losartan 100 mg tablet Follow-up/Referrals: Cristhian,GIN Funk [Primary Care Provider] - Time of Disposition: 18:49
--- NOTE | 2024-11-16 16:01 | ECG_ITS ---
Test Date: 2024-11-16 16:15:48 Measurements Intervals [place] Rate: 83 P: -7 WA: 172 QRS: 50 QRSD: 94 T: 69 QT: 331 QTc: 389 Interpretive Statements SINUS RHYTHM BASELINE ARTIFACT- I, II, III, AVR, AVL, AVF, V4-V6 NORMAL ECG No previous ECG available for comparison Electronically Signed On 11-16-2024 16:34:03 CDT by Andrew Chacon D.O.
[2024-11-16 16:30] LABS: Basophils Absolute Auto 0.04 K/mm3 (0.00-0.10); Basophils Percent Auto 0.9 % (0.0-1.0); Eosinophils Absolute Auto 0.09 K/mm3 (0.02-0.50); Eosinophils Percent Auto 2.1 % (1.0-6.0); Hematocrit 47.2 % (37.0-46.0); Hemoglobin 15.2 g/dL (12.4-15.3); Immature Granulocyte Absolute 0.02 K/mm3 (0.00-0.00); Immature Granulocyte Percent A 0.5 % (0.0-0.0); Lymphocytes Absolute Auto 1.25 K/mm3 (1.10-4.50); Lymphocytes Percent Auto 28.6 % (18.0-42.0); Mean Corpuscular HGB Conc 32.2 g/dL (32-36); Mean Corpuscular Hemoglobin 31.5 pg (27.0-31.0); Mean Corpuscular Volume 97.7 fL (78.0-102.0); Mean Platelet Volume 9.2 fl (8.7-11.0); Monocytes Absolute Auto 0.52 K/mm3 (0.10-0.90); Monocytes Percent Auto 11.9 % (2.0-11.0); Neutrophils Absolute Auto 2.45 K/mm3 (1.70-7.20); Platelet Count Result 249 K/mm3 (150-420); Red Blood Count 4.83 M/mm3 (4.70-6.10); Red Cell Distribution Width 13.9 % (11.6-14.4); White Blood Count 4.4 K/mm3 (4.8-10.8)
[2024-11-16 16:42] LABS: Lactic Acid Reflex 1.2 mmol/L (0.4-2.0)
[2024-11-16 16:43] LABS: Alanine Aminotransferase 110 U/L (6-50); Albumin Level 4.6 g/dL (3.5-5.1); Alkaline Phosphatase 76 U/L (38-126); Anion Gap 6 mmol/L (4-12); Aspartate Amino Transferase 95 U/L (17-59); Bilirubin,Total 0.9 mg/dL (0.2-1.3); Blood Urea Nitrogen 23 mg/dL (9-20); Calcium 8.9 mg/dL (8.4-10.2); Carbon Dioxide 28 mmol/L (22-30); Chloride 103 mmol/L (98-107); Estimated CRCL calculation 60 ml/min; Estimated Glomerular Filt Rate 47; Glucose 113 mg/dL (65-110); Osmolality Calculated 288 mOsm/kg (285-295); Potassium 5.1 mmol/L (3.4-5.0); Sodium 137 mmol/L (137-145)
[2024-11-16 16:44] LABS: INR 0.9; Partial Thromboplastin Time 25.1 Sec (23.9-30.70); Prothrombin Time 10.3 Seconds (9.50-12.1)
[2024-11-16 16:54] LABS: Troponin I < 0.012 ng/mL (0.000-0.034)
[2024-11-16 16:56] LABS: Add Urine Microscopic? YES; Bilirubin Urine 1+ (Negative); Blood Urine Negative (Negative); Color Urine Yellow (Yellow); Glucose Urine UA Negative (Negative); Ketones Urine Trace (Negative); Leukocyte Esterase Ur Trace LEU/UL (Negative); Nitrate Urine Negative (Negative); Protein Urine Trace (Negative); Specific Grav Ur >= 1.030 (1.010-1.020)
--- OUTSIDE RECORDS SUMMARY | 2024-11-16 17:06 | XMS_ITS | Clinical Summary ---
Author Organization [facility] Address [address] [place] [address] Care Team Providers Care Technical Support 1 Software Engineer Name Role Phone Naif Morrow Primary Care Provider [phone] [facility],non-owned Affiliates and Associated Physician Practices is amultiple site organization consisting of ambulatory clinics and hospital sitesin [place], [place], [place] and [place]. This disclosure is being madepursuant to the Care Everywhere program and may not contain all information available regarding this patient. Last updated 18.[facility] Allergies No known active allergies Medications * [...] complete this topic Insurance MEDICARE Care Teams Technical Support 1 Software Engineer Relationship Specialty Start Date End Date Naif Morrow PA [address] [place] [address] PCP - General Physician Real Estate Loan Officer 12/24/22
--- OUTSIDE RECORDS SUMMARY | 2024-11-16 17:07 | XMS_ITS | Continuity of Care Document ---
Author Organization [facility] Address [address] [place] [address] Care Team Providers Care General Dentist/Owner Name Role Phone PAULA MORROW Primary Care Provider Assessment No assessment recorded. Plan of Treatment Reminders Order Date Submit Date Provider Last Modified By Organization Details Last Modified Time Details Appointments None recorded. Lab CBC 2024 025 [facility], [address] [place] [address] 2, [place], [address], 09:13:26 CMP, serum or plasma 2024 025 [facility], [address] [place] [address] 2, [place], [address], 09:13:23 lipid panel, serum 2024 025 [facility], [address] [place] [address] 2, [place], [address], 09:13:22 Referral None recorded. Procedures None recorded. Surgeries None recorded. Imaging XR, chest, 2 view 2024 025 [facility] (Registration ), [address] [place], [address], 18:28:35 US, abdomen - stat please 2024 025 [facility], [address] [place], [address], 16:40:58 Medication Orders duloxetine 30 mg capsule,del ayed release 2024 025 [facility] #00276, [address], [place], [id number], 5 14:57:08 diclofenac sodium 75 mg tablet,adrien yed release 2024 025 [facility] #[id number], [address], [place], [id number], 5 14:57:08 testosteron e cypionate 200 mg/mL intramuscul ar oil 2024 025 [facility] #78155, [address] [place] [address], [id number], 5 14:57:08 benzonatate 200 mg capsule 2024 025 [facility] #11474, [address], [place], [id number], 5 14:57:33 Tamiflu 75 mg capsule 2024 025 [facility] #09786, [address], [place], [id number], 5 15:00:57 losartan 100 mg tablet 2024 025 [facility] #18574, [address], [place], [id number], 5 14:57:08 Airsupra 90 mcg-80 mcg/actuati on HFA aerosol inhaler 2024 025 [facility] #40159, [address] [place] [address], [id number], 5 14:57:09 acetaminoph en 300 mg-codeine 30 mg tablet 2024 025 [facility]87, [address], [place], [id number], 14:57:09 Patient TargetsNo targets recorded. Patient Instructions Encounter Date Encounter Id Patient Instructions Last Modified By Organization Details Last Modified Time 11/15/2024 [id number] A healthy lifestyle: care instructions karuna Not available 11/15/2024 14:59:18 Reason for Referral None Reported. Results Created Date Observation Date Name Description Value Unit Range Abnormal Flag Note LastModifiedBy Organization Detail LastModifiedTime 11/16/19 25 11/13/2024 XR, ribs, unila teral No observ ation record ed. [facility] [address] [place] [address], [address], 11/15/2024 15:45:14 11/16/19 25 11/15/2024 US, abdom en No observ ation record ed. [facility] [address] [place], [address], 11/16/2024 13:22:27 11/16/19 25 11/15/2024 XR, chest , 2 view No observ ation record ed. [facility] [address] [place], [address], 11/16/2024 11:26:45 Result Notes None recorded. Problems Name Problem SNOMED Code Status Onset Date Resolution Date Notes Provider Name and Address Organization Details Recorded Time Atypical chest pain 460498042 Jaswinder Haddad [place] null, [place] - [facility] 6 16:13:32 Angina pectoris 629070493 [place], [place] [facility] 6 16:13:32 Dyspnea on exertion 09346170 [place] [facility] 6 16:13:32 Knee joint painful on movement 748607606 [place] [facility] 6 16:13:32 Chronic arthropathy 00138462 Active Paula Morrow PA-C Attn: Riki pacheco,[address] [facility], [place], [address], [facility] - [facility] 6 16:41:37 Fatigue 52902310 Active Paula Morrow PA-C Attn: Riki pacheco,[address] [facility], [place], [address], [facility] - SI 6 16:41:37 Problem Notes None recorded. Procedures Surgical History Date Name Laterality Status Provider Name and Address Organization Details Recorded Time colonoscopy completed Dior Begum MA [facility] 07/22/2022 12:32:58 Imaging Results None recorded. Procedure [...] mm[Hg] Paula Morrow PA-C Attn: Accounting,[address] [place], [address], [facility] 11/15/2024 14:59:01 Date Recorded Body height Body mass index (BMI) Body weight Oxygen saturation Oxygen saturation in Arterial blood by Pulse oximetry Heart rate Provider Name and Address Organization Details Last Updated DateTime 5 185.42 cm 38 kg/m2 835404. 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 Never used electronic cigarettes Information not available 01/30/2022 What is your exercise level? None Information not available 09/03/2022 Mental Status Question Answer Note LastModified by Organization D etails LastModified Time Do you feel stressed (tense, restless, nervous, or anxious, or unable to sleep at night)? AB12100-0 Information not available 12/13/2022 Family History Relationship [...] Depression N COPD N Blood Clots N Eating Disorder N Skin Problems N Anemia N Heart Attack ([place]) N Anxiety Disorder N Diabetes N Muscle, [...] virus, quadrivalent, preservative 6 completed Not Available [facility] 06/[facility]/2019 02:50:31 Tdap 0 completed [place], [place] [facility] 03/04/2023 09:52:56 Influenza, adjuvanted, quadrivalent, PF 1 completed Dior Begum [place], [place] [facility] 03/18/2023 09:42:54 COVID-19, mRNA, LNP-S, PF, 30 mcg/0.3 mL dose 1 completed [place], [place] [facility] 03/18/2023 09:42:54 Influenza, adjuvanted, quadrivalent, PF 2 completed Not Available [facility] 11/15/2024 14:25:51 COVID-19, mRNA, LNP-S, bivalent, PF, 30 mcg/0.3 mL dose 2 completed Not Available [facility] 11/15/2024 14:25:51 Influenza, high-dose, quadrivalent, PF 3 completed [place] [facility] 03/18/2023 18:24:30 Influenza, high-dose, trivalent, PF 5 completed [place], [place] [facility] 06/16/2024 17:29:09 Past Encounters Encounter ID Performer Location Encounter Start Date Encounter Closed Date Diagnosis/Indication Diagnosis SNOMED-CT Code Diagnosis ICD10 Code Diagnosis Note [id number] Joshua Henderson MD [facility] [address] [place] [address] 11/15/2024 14:24:49 11/16/2024 09:54:42 Essential hypertension 04363355 I10 Osteoarthritis 779565062 M15.0 Arthritis 6548853 M15.0 Male hypogonadism 048453 06 E29.1 Influenza caused by Influenza A virus 685955420 J10.1 Right uppe r quadrant pain 992907621 R10.11 Hypoxia 603762462 R09.02 Obese class II 662579639 1 87436 E66.812 Health Concerns Section Related Observation LastModified by Organization Detai ls LastModified Time None Recorded Concern Status LastModified by Organization Details LastModified Time None Recorded Payers Encounter Date Sequence Insurance Name Policy Number Policy Erazo Covered Member ID Erazo Member ID Guarantor Name 11/15/2024 1 [facility] (MEDICARE REPLACEMENT/A DVANTAGE - HMO) [id number] Shen Mccullough [id number] Shen Mccullough Notes Date Note Type Note Provider Name and Address Organization Details Recorded Time 11/15/2024 text/html began friday 2 days ago with lung and cough...SOB..deborah gnosed with influenza A..no labs no chest xray..cough is excruciating.. Paula Morrow PA-C Attn: Accounting,[address] [place], [address], [facility] - [facility] 11/15/2024 15:01:46
--- OUTSIDE RECORDS SUMMARY | 2024-11-16 17:07 | XMS_ITS | Clinical Summary ---
Author Organization [facility] Address [address] [place] [address] Phone Care Team Providers Care Diesel Engine Assembler Name Role Phone Naif Morrow Primary Care Provider [phone] Allergies No known active allergies Medications atorvastatin [...] 11/13/2024 9:22 PM CDT Emergency [facility] Emergency [address] [place] [address] Ambrosio Jin MD Influenza A [...] mcg/mL FEU 11/13/2024 8:49 PM CDT [facility] Blood Venipuncture / Unknown 11/13/2024 8:17 PM CDT 11/13/2024 8:32 PM CDT Narrative [facility] - 11/13/2024 8:49 PM CDT The FDA has approved this method to exclude the diagnosis of DVT and/or PE at the cutoff value of <0.50 mcg/mL FEU. Ambrosio Jin MD HEMATOLOGY ORDERABLES Tanvi forrest Result [facility] [address] [place] [address] * XR RIBS UNILATERAL WITH PA CHEST [...] Hubert Castillo M.D. AR: ORI Report ID: [id number] Reading Location: [id number] Procedure Note Hubert Csatillo MD - 11/13/2024 EXAM DESCRIPTION: XR RIBS [...] Hubert Castillo M.D. AR: ORI Report ID: [id number] Reading Location: [place] [address] IMPRESSION: No rib fracture or other acute abnormality identified. Ambrosio Jin MD IMG DIAGNOSTIC ORDERABLES Final Result * (ABNORMAL) RSV,SARS-COV-2,INFLUENZA A&B BY PCR (11/13/2024 7:25 PM CDT) [facility] FLU A Positive(A) Negative, Error 11/13/2024 8:17 PM CDT [facility] FLU B Negative Negative 11/13/2024 8:17 PM CDT [facility] RESP SYNC VIRUS Negative Negative 8:17 PM CDT [facility] SARSCOV2 NOT DETECTED (Reference Range for this test is Not Detected) 11/13/2024 8:17 PM CDT [facility] Comment:This test was perfor med by a Reverse Out And Out Cigar Maker Hand PCR Method. Swab NASOPHARYNGEAL WASHINGS / Unknown Non-Phlebotomy Collection / Unknown 11/13/2024 7:25 PM CDT 11/13/2024 7:39 PM CDT Ambrosio Jin MD MICROBIOLOGY - GENERAL ORD ERABLES Final Result [facility] [address] [place] [address] * PSA SCREEN (11/15/2020 10:19 AM CDT) [facility] PSA SCREEN, TOTAL 0.25 <=4.00 ng/mL 11/15/2020 11:17 AM CDT [facility] Blood Venipuncture / Unknown 11/15/2020 10:19 AM CDT 11/15/2020 10:40 AM CDT Narrative [facility] - 11/15/2020 11:17 AM CDT PSA NOTE: The PSA value should be used in conjunction with information available from clinical evaluation and other diagnostic procedures. us Naif Morrow PAC CHEMISTRY ORDERABLES Final Re sult [facility] [address] [place] [address] from Last 3 Months or Most Recently Relevant to Health Maintenance Additional Health Concerns Infection Onset Date Last Indicated Influenza 11/13/2024 11/13/2024 [facility] Care Teams Diesel Engine Assembler Relationship Specialty Start Date End Date Naif Morrow, PAC [address] [place] [address] PCP - General Physician Office Worker 11/15/20
--- OUTSIDE RECORDS SUMMARY | 2024-11-16 17:07 | XMS_ITS | Clinical Summary ---
Author Organization [address] Address [address] [place] [facility] [place] [place] [address] Care Team Providers Care Base Manager Name Role Phone Naif Morrow Primary Care Provider [phone] Allergies No known active allergies Medications aspirin [...] (01/25/2022): Added automatically from request for surgery [id number] Shortness of breath 06/29/2014 Overview (09/12/2016): Dyspnea Encounters Date Type Department Care Team Description 09/14/2024 1:45 PM CDT Office Visit [facility] Orthopedics and Sports Medicine [address] [place] [address] [address], [place] [address] Eli Tee PA Bilateral primary osteoarthritis of knee (Primary Dx) 09/13/2024 Telephone [facility] [address] [place] [address] [address] [place] [address] Eli Tee PA from Last 3 Months [...] on file 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 Gender Identity Not on file Sexual Orientation [...] Tdap) 03/21/2030 Medical Devices Implanted Type Area Biblical Languages Professor Device Identifier Shelf Expiration Date Model / Serial / Lot [employer] [id number] Angio-Seal Evolution 6fr .035in Guidewire Bypass Tube Suture - [id number] Implanted:Qty: 1 on 01/09/2021 by Francisco Yee MD at [facility] 08/06/2021 [id number] / / [id number] Procedures Procedure Name Priority Date/Time Associated Diagnosis Comments [place] ARTHROCENTESIS ASPIR&/INJ MAJOR JT/BURSA W/O US Routine 09/14/2024 1:45 PM CDT Bilateral primary osteoarthritis of knee from Last 3 Months Results * [place] ARTHROCENTESIS ASPIR&/INJ MAJOR JT/BURSA W/O US (09/14/2024 [...] 3 Months Insurance MEDICARE UHC MEDICARE ADVANTAGE [facility]IC[facility] Address: [facility] [address] [place] [address] MEDICARE [facility] BETZAIDA [place], [place] [address] WORKERS COMPENSATION GENERIC Advance Directives For more information, please contact: [phone] * Full Code (Latest Code Status on File) Date Activated Date Inactivated Comments 01/09/2021 11:19 AM 01/09/2021 6:45 PM Care Teams Base Manager Relationship Specialty Start Date End Date Naif Morrow PA [address] [place] [address] PCP - General Family Practice 03/21/20
--- OUTSIDE RECORDS SUMMARY | 2024-11-16 17:07 | XMS_ITS | Referral Summary ---
Author Organization [address] lto Address [address] [facility] [address] [place] [facility] [address] Care Team Providers Care Weather Anchor Name Role Phone Naif Morrow Primary Care Provider Encounters Date Type Department Care Team Description 09/14/2024 1:45 PM CDT Office Visit [facility] Medical [facility] Orthopedics and Sports Medicine [address] [place] [address] [address] [place] [address] Eli Tee PA Bilateral primary osteoarthritis of knee (Primary Dx) 09/13/2024 Telephone [facility]ics and Sports Medicine [address] [place] [address] [address] [place] [address] Eli Tee PA from Last [...] (01/25/2022): Added automatically from request for surgery [id number] Shortness of breath 06/29/2014 Overview (09/12/2016): Dyspnea [...] on file 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 Gender Identity Not on file Sexual Orientation [...] on file Medical Devices Implanted Type Area Farmer Vegetable Device Identifier Shelf Expiration Date Model / Serial / Lot [employer] [id number] Angio-Seal Evolution 6fr .035in Guidewire Bypass Tube Suture - [id number] Implanted:Qty: 1 on 01/09/2021 by Francisco Yee MD at [facility] [employer] 08/06/2021 [id number] / / [id number] Procedures Procedure Name Priority Date/Time Associated Diagnosis Comments OR ARTHROCENTESIS ASPIR&/INJ MAJOR JT/BURSA W/O US Routine 09/14/2024 1:45 PM CDT Bilateral primary osteoarthritis of knee from Last 3 Months Results * OR ARTHROCENTESIS ASPIR&/INJ MAJOR JT/BURSA W/O US (09/14/2024 [...] Insurance MEDICARE UHC MEDICARE ADVANTAGE MEDICARE [facility] [facility] WORKERS COMPENSATION GENERIC Advance Directives For more information, please contact: [phone] * Full Code (Latest Code Status on File) Date Activated Date Inactivated Comments 01/09/2021 11:19 AM 01/09/2021 6:45 PM Care Teams Weather Anchor Relationship Specialty Start Date End Date Naif Morrow PA [address] [place] [address] PCP - General Family Practice 03/21/20
--- OUTSIDE RECORDS SUMMARY | 2024-11-16 17:07 | XMS_ITS | Data Portability ---
Author Organization [facility] SALLYRadha Address [address] [facility] JAYCOB [place] [address] Care Team Providers Care Public Health Administrator Name Role Phone PAULA MORROW Primary Care Provider [phone] Assessment No assessment recorded. Plan of Treatment Reminders Order Date Submit Date Provider Last Modified By Organization Details Last Modified Time Details Appointments None recorded. Lab CBC 2024 025 MASHA [facility], [address] [facility] [facility], [address], [place], [address], 5 09:13:26 CMP, serum or plasma 2024 025 MAS[facility], [address] [facility] [facility], [address], [place], [address], 5 09:13:23 lipid panel, serum 2024 025 MASHA [facility], [address] [facility], [address], [place], [address], 5 09:13:22 CBC 2023 024 [facility], [address] [facility] [address], [place], [address], 4 06:17:51 CBC 2023 024 [email or web address] [facility], [address], [address], [place], [address], 4 17:07:40 CMP, serum or plasma 2023 024 [facility], [address] [facility] [address], [place], [address], 4 06:18:01 lipid panel, serum 2023 024 [facility], [address] [place] [address] 2, [place], [address], 4 06:18:00 testostero ne, free + total, serum 2023 024 [facility], [address] [facility] [address], [place], [address], 4 06:17:59 TSH + free T4, serum 2023 024 [facility], [address] [place] [address] 2, [place], [address], 4 06:17:59 Referral None recorded. Procedures None recorded. Surgeries None recorded. Imaging XR, chest, 2 view 2024 025 [facility] (Registration ), [address] [place], [address], 5 18:28:35 US, abdomen - stat please 2024 025 [facility], [address] [place], [address], 5 16:40:58 XR, chest, 2 view 2023 024 [facility] ([facility]) Registration/ Lab, [address] [place], [address], 4 18:01:12 Medication Orders duloxetine 30 mg capsule,de layed release 2024 025 [facility] #[id number], [address] [place], [place], [id number], 5 14:57:08 diclofenac sodium 75 mg tablet,del ayed release 2024 025 [facility] #84223, [address] [place], [place], [id number], 5 14:57:08 testostero ne cypionate 200 mg/mL intramuscu lar oil 2024 025 [facility] #76019, [address] [place], [place], [id number], 5 14:57:08 benzonatat e 200 mg capsule 2024 025 [facility] #60445, [address] [place], [place], [id number], 5 14:57:33 Tamiflu 75 mg capsule 2024 025 [facility] #64986, [address], [place], [id number], 5 15:00:57 losartan 100 mg tablet 2024 025 [facility] #71045, [address] [place], [place], [id number], 5 14:57:08 Airsupra 90 mcg-80 mcg/actuat ion HFA aerosol inhaler 2024 025 [facility] #81694, [address] [place], [place], [id number], 5 14:57:09 acetaminop hen 300 mg-codeine 30 mg tablet 2024 025 [facility] #25278, [address] [place], [place], [id number], 5 14:57:09 duloxetine 30 mg capsule,de layed release 2024 025 [facility], [address] [place], [place], [id number], 5 17:22:36 atorvastat in 40 mg tablet 2024 025 [facility] #84281, [address] [place], [place], [id number], 5 14:34:08 diclofenac sodium 75 mg tablet,del ayed release 2024 025 [facility] #95550, [address] [place], [place], [id number], 5 17:22:36 losartan 100 mg tablet 2024 025 [facility], [address] [place], [place], [id number], 5 17:22:37 omeprazole 40 mg capsule,de layed release 2024 025 [facility] #20802, [address] [place], [place], [id number], 5 17:22:36 aspirin 81 mg tablet,del ayed release 2024 025 [facility] #86293, [address], [place], [id number], 5 17:22:37 losartan 100 mg tablet 2023 024 [facility] #85897, [address] [place], [place], [id number], 4 14:45:02 Patient TargetsNo targets recorded. Patient Instructions Encounter Date Encounter Id Patient Instructions Last Modified By Organization Details Last Modified Time 09/02/2023 [id number] A healthy lifestyle: care instructions jnanney Not available 09/02/2023 17:48:14 learning about high blood pressure jnanney Not available 09/02/2023 17:48:15 hypogonadism: care instructions jnanney Not available 09/02/2023 17:48:14 10/02/2023 [id number] A healthy lifestyle: care instructions jnanney Not available 10/02/2023 14:44:50 angina: care instructions jnanney Not available 10/02/2023 14:44:50 learning about high blood pressure jnanney Not available 10/02/2023 14:44:50 10/14/2023 [id number] A healthy lifestyle: care instructions jnanney Not available 10/14/2023 18:04:44 learning about high blood pressure jnanney Not available 10/14/2023 18:04:44 06/16/2024 [id number] influenza (flu) vaccine: care instructions jnanney Not available 06/16/2024 17:23:41 11/15/2024 [id number] A healthy lifestyle: care instructions jnanney Not available 11/15/2024 14:59:18 Reason for Referral None Reported. Results Created Date Observation Date Name Description Value Unit Range Abnormal Flag Note LastModifiedBy Organization Detail LastModifiedTime 09/16/1909/18/2023 TESTO STERO NE,FR EE AND TOTAL testosterone 1068 NG/dL 264-91 6 above high normal Adult male refer ence inter darleen is based on a popul ation of healt hy nonob roly males (BMI <30) betwe en 19 and 39 years old. Gallito epstein, et.al . JCEM 2017, 102;1 161-1 173. PMID: 90285 103. Not Available [facility] [address] [place], [address], 09/23/2023 06:17:59 09/16/1909/22/2023 TESTO STERO NE,FR EE AND TOTAL free testosterone (direct) 14.1 pg/mL 6.6-18 .1 Not Available [facility] [address] [place], [address], 09/23/2023 06:17:59 09/16/1909/18/2023 TSH+F REE T4 TSH 1.740 uIU/m L 0.450- 4.500 Not Available [address], [address], 09/23/2023 06:17:59 09/16/1909/18/2023 TSH+F REE T4 T4,free(dire ct) 1.08 NG/dL 0.82-1 .77 Not Available [address], [address], 09/23/2023 06:17:59 09/16/1909/18/2023 LIPID PANEL cholesterol, total 223 mg/dL 100-19 9 above high normal Not Available [address], [address], 09/23/2023 06:18:00 09/16/1909/18/2023 LIPID PANEL triglyceride s 193 mg/dL 0-149 above high normal Not Available [address], [address], 09/23/2023 06:18:00 09/16/1909/18/2023 LIPID PANEL HDL cholesterol 47 mg/dL >39 Not Available [address], [address], 09/23/2023 06:18:00 09/16/1909/18/2023 LIPID PANEL VLDL cholesterol yessenia 35 mg/dL 5-40 Not Available [address], [address], 09/23/2023 06:18:00 09/16/1909/18/2023 LIPID PANEL LDL chol calc ([facility]) 141 mg/dL 0-99 above high normal Not Available [address], [address], 09/23/2023 06:18:00 09/16/19 24 09/18/2023 COMP. METAB OLIC PANEL (14) glucose 143 mg/dL 70-99 above high normal Not Available [address], [address], 09/23/2023 06:18:01 09/16/19 24 09/18/2023 COMP. METAB OLIC PANEL (14) BUN 13 mg/dL 8-27 Not Available [address], [address], 09/23/2023 06:18:01 09/16/19 24 09/18/2023 COMP. METAB OLIC PANEL (14) creatinine 1.27 mg/dL 0.76-1 .27 Not Available [address], [address], 09/23/2023 06:18:01 09/16/19 24 09/18/2023 COMP. METAB OLIC PANEL (14) eGFR 62 mL/mi n/1.7 3 >59 Not Available [address], [address], 09/23/2023 06:18:01 09/16/19 24 09/18/2023 COMP. METAB OLIC PANEL (14) BUN/creatini ne ratio 10 10-24 Not Available [address], [address], 09/23/2023 06:18:01 09/16/19 24 09/18/2023 COMP. METAB OLIC PANEL (14) sodium 137 mmol/ L 134-14 4 Not Available [address], [address], 09/23/2023 06:18:01 09/16/19 24 09/18/2023 COMP. METAB OLIC PANEL (14) potassium 4.9 mmol/ L 3.5-5. 2 Not Available [address], [address], 09/23/2023 06:18:01 09/16/19 24 09/18/2023 COMP. METAB OLIC PANEL (14) chloride 99 mmol/ L 96-106 Not Available [address], [address], 09/23/2023 06:18:01 09/16/19 24 09/18/2023 COMP. METAB OLIC PANEL (14) carbon dioxide, total 19 mmol/ L 20-29 below low normal Not Available [address], [address], 09/23/2023 06:18:01 09/16/19 24 09/18/2023 COMP. METAB OLIC PANEL (14) calcium 9.7 mg/dL 8.6-10 .2 Not Available [address], [address], 09/23/2023 06:18:01 09/16/19 24 09/18/2023 COMP. METAB OLIC PANEL (14) protein, total 6.9 g/dL 6.0-8. 5 Not Available [address], [address], 09/23/2023 06:18:01 09/16/19 24 09/18/2023 COMP. METAB OLIC PANEL (14) albumin 4.4 g/dL 3.9-4. 9 Not Available [address], [address], 09/23/2023 06:18:01 09/16/19 24 09/18/2023 COMP. METAB OLIC PANEL (14) globulin, total 2.5 g/dL 1.5-4. 5 Not Available [address], [address], 09/23/2023 06:18:01 09/16/19 24 09/18/2023 COMP. METAB OLIC PANEL (14) A/G ratio 1.8 1.2-2. 2 Not Available [address], [address], 09/23/2023 06:18:01 09/16/19 24 09/18/2023 COMP. METAB OLIC PANEL (14) bilirubin, total 0.6 mg/dL 0.0-1. 2 Not Available [address], [address], 09/23/2023 06:18:01 09/16/19 24 09/18/2023 COMP. METAB OLIC PANEL (14) alkaline phosphatase 60 IU/L 44-121 Not Available [address], [address], 09/23/2023 06:18:01 09/16/19 24 09/18/2023 COMP. METAB OLIC PANEL (14) AST (SGOT) 47 IU/L 0-40 above high normal Not Available [address], [address], 09/23/2023 06:18:01 09/16/19 24 09/18/2023 COMP. METAB OLIC PANEL (14) ALT (SGPT) 62 IU/L 0-44 above high normal Not Available [address], [address], 09/23/2023 06:18:01 09/16/19 24 09/18/2023 CARDI OVASC ULORI ÁLVAREZ T interpretati on Note Suppl lauren ortiz is avail able. Not Available [address], [address], 09/23/2023 06:18:02 09/16/19 09/18/2023 CATHERINE Comer pdf . Not Available [facility] [address] [facility], [place], [address], 09/23/2023 06:18:02 10/02/1910/03/2023 CBC, PLATE LET, NO DIFFE RENTI AL WBC 13.3 x10e3 /uL 3.4-10 .8 above high normal Not Available [facility] ([facility]) [address] [place], [address], 10/03/2023 06:17:51 10/02/1910/03/2023 CBC, PLATE LET, NO DIFFE RENTI AL RBC 5.73 x10e6 /uL 4.14-5 .80 Not Available [facility] ([facility]) [address] [place], [address], 10/03/2023 06:17:51 10/02/1910/03/2023 CBC, PLATE LET, NO DIFFE RENTI AL hemoglobin 17.8 g/dL 13.0-1 7.7 above high normal Not Available [facility] ([facility]) [address] [place], [address], 10/03/2023 06:17:51 10/02/1910/03/2023 CBC, PLATE LET, NO DIFFE RENTI AL hematocrit 54.9 % 37.5-5 1.0 above high normal Not Available [facility] ([facility]) [address] [place], [address], 10/03/2023 06:17:51 10/02/1910/03/2023 CBC, PLATE LET, NO DIFFE RENTI AL MCV 96 fL 79-97 Not Available [facility] ([facility]) [address] [place], [address], 10/03/2023 06:17:51 10/02/19 24 10/03/2023 CBC, PLATE LET, NO DIFFE RENTI AL MCH 31.1 pg 26.6-3 3.0 Not Available [facility] ([facility]) [address] [facility], [place], [address], 10/03/2023 06:17:51 10/02/19 24 10/03/2023 CBC, PLATE LET, NO DIFFE RENTI AL MCHC 32.4 g/dL 31.5-3 5.7 Not Available [facility] ([facility]) [address] [facility], [place], [address], 10/03/2023 06:17:51 10/02/19 24 10/03/2023 CBC, PLATE LET, NO DIFFE RENTI AL RDW 13.0 % 11.6-1 5.4 Not Available [facility] ([facility]) [address] [facility], [place], [address], 10/03/2023 06:17:51 10/02/1910/03/2023 CBC, PLATE LET, NO DIFFE RENTI AL platelets 309 x10e3 /uL 150-45 0 Not Available [facility] ([facility]) [address] [facility], [place], [address], 10/03/2023 06:17:51 11/14/1911/13/2024 Fibri n D-dim er [...] Normal Not Available Not Available 02/2025 15:08:21 11/14/1911/13/2024 Influ alissa virus A and B and [...] ve Not Available Not Available 11/15/2024 15:08:21 11/14/1911/13/2024 Influ alissa virus A and B and [...] This test was perfo rmed by a Rever se Trans cript ion PCR Metho d. Not Available Not Available 11/15/2024 15:08:21 11/14/19 25 11/13/2024 Influ alissa virus A and B and SARS- CoV-2 (COVI D-19) and Respi rator y syncy tial virus RNA panel - Respi rator y syste m speci men by ADEEL with probe detec tion interpretati on and review of laboratory results Abnorm al Not Available Not Available 15:08:21 11/16/19 25 11/16/2024 LIPID PANEL cholesterol, total 138 mg/dL 100-19 9 Not Available [address], [address], 11/16/2024 09:13:22 11/16/19 25 11/16/2024 LIPID PANEL triglyceride s 101 mg/dL 0-149 Not Available [address], [address], 11/16/2024 09:13:22 11/16/19 25 11/16/2024 LIPID PANEL HDL cholesterol 44 mg/dL >39 Not Available [address], [address], 11/16/2024 09:13:22 11/16/19 25 11/16/2024 LIPID PANEL VLDL cholesterol yessenia 19 mg/dL 5-40 Not Available [address], [address], 11/16/2024 09:13:22 11/16/19 25 11/16/2024 LIPID PANEL LDL chol calc ([facility]) 75 mg/dL 0-99 Not Available [address], [address], 11/16/2024 09:13:22 11/16/19 25 11/16/2024 COMP. METAB OLIC PANEL (14) glucose 98 mg/dL 70-99 Not Available [address], [address], 11/16/2024 09:13:23 11/16/19 25 11/16/2024 COMP. METAB OLIC PANEL (14) BUN 23 mg/dL 8-27 Not Available [address], [address], 11/16/2024 09:13:23 11/16/19 25 11/16/2024 COMP. METAB OLIC PANEL (14) creatinine 1.48 mg/dL 0.76-1 .27 above high normal Not Available [address], [address], 11/16/2024 09:13:23 11/16/19 25 11/16/2024 COMP. METAB OLIC PANEL (14) eGFR 51 mL/mi n/1.7 3 >59 below low normal Not Available [address], [address], 11/16/2024 09:13:23 11/16/19 25 11/16/2024 COMP. METAB OLIC PANEL (14) BUN/creatini ne ratio 16 10-24 Not Available [address], [address], 11/16/2024 09:13:23 11/16/19 25 11/16/2024 COMP. METAB OLIC PANEL (14) sodium 137 mmol/ L 134-14 4 Not Available [address], [address], 11/16/2024 09:13:23 11/16/19 25 11/16/2024 COMP. METAB OLIC PANEL (14) potassium 5.4 mmol/ L 3.5-5. 2 above high normal Not Available [address], [address], 11/16/2024 09:13:23 11/16/19 25 11/16/2024 COMP. METAB OLIC PANEL (14) chloride 99 mmol/ L 96-106 Not Available [address] [place], [address], 11/16/2024 09:13:23 11/16/19 25 11/16/2024 COMP. METAB OLIC PANEL (14) carbon dioxide, total 23 mmol/ L 20 Not Available [address], [address], 11/16/2024 09:13:23 11/16/19 25 11/16/2024 COMP. METAB OLIC PANEL (14) calcium 9.0 mg/dL 8.6-10 .2 Not Available [address], [address], 11/16/2024 09:13:23 11/16/19 25 11/16/2024 COMP. METAB OLIC PANEL (14) protein, total 6.8 g/dL 6.0-8. 5 Not Available [address], [address], 11/16/2024 09:13:23 11/16/19 25 11/16/2024 COMP. METAB OLIC PANEL (14) albumin 4.3 g/dL 3.9-4. 9 Not Available [address], [address], 11/16/2024 09:13:23 11/16/19 25 11/16/2024 COMP. METAB OLIC PANEL (14) globulin, total 2.5 g/dL 1.5-4. 5 Not Available [address], [address], 11/16/2024 09:13:23 11/16/19 25 11/16/2024 COMP. METAB OLIC PANEL (14) bilirubin, total 0.6 mg/dL 0.0-1. 2 Not Available [address], [address], 11/16/2024 09:13:23 11/16/19 25 11/16/2024 COMP. METAB OLIC PANEL (14) alkaline phosphatase 77 IU/L 44-121 Not Available [address], [address], 11/16/2024 09:13:23 11/16/19 25 11/16/2024 COMP. METAB OLIC PANEL (14) AST (SGOT) 85 IU/L 0-40 above high normal Not Available [address], [address], 11/16/2024 09:13:23 11/16/19 25 11/16/2024 COMP. METAB OLIC PANEL (14) ALT (SGPT) 90 IU/L 0-44 above high normal Not Available [address], [address], 11/16/2024 09:13:23 11/16/19 25 11/16/2024 LITHO LINK CKD PROGR AM interpretati on Note Suppl ement al repor t is avail able. Not Available [address], [address], 11/16/2024 09:13:25 11/16/19 25 11/16/2024 LITHO LINK CKD PROGR AM pdf . [facility] Available [facility] [address], [address], 11/16/2024 09:13:25 11/16/1911/16/2024 CARDI OVASC ULAR REPOR T interpretati on Note Suppl ement al repor t is avail able. Not Available [address], [address], 11/16/2024 09:13:26 11/16/19 25 11/16/2024 CARDI OVASC ULAR REPOR T pdf Not applic able Not Available [address] [place], [address], 11/16/2024 09:13:26 11/16/1911/16/2024 CBC, PLATE LET, NO DIFFE RENTI AL WBC 4.4 x10e3 /uL 3.4-10 .8 Not Available [address], [address], 11/16/2024 09:13:26 11/16/1911/16/2024 CBC, PLATE LET, NO DIFFE RENTI AL RBC 4.69 x10e6 /uL 4.14-5 .80 Not Available [address], [address], 11/16/2024 09:13:26 11/16/1911/16/2024 CBC, PLATE LET, NO DIFFE RENTI AL hemoglobin 14.9 g/dL 13.0-1 7.7 Not Available [address], [address], 11/16/2024 09:13:26 11/16/1911/16/2024 CBC, PLATE LET, NO DIFFE RENTI AL hematocrit 45.9 % 37.5-5 1.0 Not Available [address], [address], 11/16/2024 09:13:26 11/16/1911/16/2024 CBC, PLATE LET, NO DIFFE RENTI AL MCV 98 fL 79-97 above high normal Not Available [address], [address], 11/16/2024 09:13:26 11/16/1911/16/2024 CBC, PLATE LET, NO DIFFE RENTI AL MCH 31.8 pg 26.6-3 3.0 Not Available [address], [address], 11/16/2024 09:13:26 11/16/19 25 11/16/2024 CBC, PLATE LET, NO DIFFE RENTI AL MCHC 32.5 g/dL 31.5-3 5.7 Not Available [address], [address], 11/16/2024 09:13:26 11/16/19 25 11/16/2024 CBC, PLATE LET, NO DIFFE RENTI AL RDW 13.7 % 11.6-1 5.4 Not Available [address], [address], 11/16/2024 09:13:26 11/16/19 25 11/16/2024 CBC, PLATE LET, NO DIFFE RENTI AL platelets 222 x10e3 /uL 150-45 0 Not Available [address], [address], 11/16/2024 09:13:26 09/13/19 24 09/12/2023 XR, chest , 2 view No observ ation record ed. [facility] [address] [place], [address], 09/15/2023 11:17:32 11/16/19 25 11/13/2024 XR, ribs, unila teral No observ ation record ed. [facility] [address] [place], [address], 11/15/2024 15:45:14 11/16/19 25 11/15/2024 US, abdom en No observ ation record ed. [facility] [address] [place], [address], 11/16/2024 13:22:27 11/16/19 25 11/15/2024 XR, chest , 2 view No observ ation record ed. [facility] [address] [place], [address], 11/16/2024 11:26:45 Result Notes None recorded. Problems Name Problem SNOMED Code Status Onset Date Resolution Date Notes Provider Name and Address Organization Details Recorded Time Atypical chest pain 928156062 Active Leticia Haddad [place] null, [place] 6 16:13:32 Angina pectoris 443796267 Active Leticia Haddad [place], [place] [facility] 6 16:13:32 Dyspnea on exertion 31979203 Active Leticia Haddad [place], [place] [facility] 6 16:13:32 Knee joint painful on movement 046687949 Active Leticia Haddad [place], [place] [facility] 6 16:13:32 Chronic arthropathy 15801352 Active Paula Morrow PA-C Attn: Riki junior,[address] [place], [address], [facility] - SI 6 16:41:37 Fatigue 76910696 Active Paula Morrow PA-C Attn: Riki g,[address] [place], [address], [facility] - [facility] 6 16:41:37 Problem Notes None recorded. Procedures Surgical History Date Name Laterality Status Provider Name and Address Organization Details Recorded Time colonoscopy completed Dior Begum [place] [facility] 07/22/2022 12:32:58 Imaging Results None [...] Updated DateTime 5 185.42 cm 38.7 kg/m2 406033. 26 g 98 % 98 % 76 /min 162 mm[Hg] 82 mm[Hg] Avis Guido MA [facility] 5 17:07:21 Date Recorded Body height Body mass index (BMI) Body weight Oxygen saturation Oxygen saturation in Arterial blood by Pulse oximetry Heart rate Respiratory rate Body temperature Systolic blood pressure Diastolic blood pressure Provider Name and Address Organization Details Last Updated DateTime 4 185.42 cm 38.8 kg/m2 541196. 16 g 96 % 96 % 83 /min 16 /min 97.8 [degF] 153 mm[Hg] 90 mm[Hg] Miguelina Newby MA [facility] 4 17:35:01 Date Recorded Body height Body mass index (BMI) Body weight Oxygen saturation Oxygen saturation in Arterial blood by Pulse oximetry Heart rate Systolic blood pressure Diastolic blood pressure Provider Name and Address Organization Details Last Updated DateTime 4 185.42 cm 39.5 kg/m2 880269. 52 g 99 % 99 % 65 /min 162 mm[Hg] 90 mm[Hg] Avis Guido MA [facility] 4 14:14:16 Date Recorded Body height Body mass index (BMI) Body weight Heart rate Oxygen saturation Oxygen saturation in Arterial blood by Pulse oximetry Systolic blood pressure Diastolic blood pressure Provider Name and Address Organization Details Last Updated DateTime 4 185.42 cm 38.5 kg/m2 881379. 97 g 79 /min 96 % 96 % 138 mm[Hg] 78 mm[Hg] Avis Guido MA [facility] 4 17:44:35 Date Recorded Systolic blood pressure Diastolic blood pressure Provider Name and Address Organization Details Last Updated DateTime 11/15/2024 138 mm[Hg] 78 mm[Hg] Paula Morrow PA-C Attn: Accounting,[address] [place], [address], [facility] 11/15/2024 14:59:01 Date Recorded Body height Body mass index (BMI) Body weight Oxygen saturation Oxygen saturation in Arterial blood by Pulse oximetry Heart rate Provider Name and Address Organization Details Last Updated DateTime 5 185.42 cm 38 kg/m2 721213. 6 g 93 % 93 % 84 /min Dior Begum MA [facility] 14:31:56 Social History Question Answer Notes LastModified by Organizat ion Details LastModified Time Tobacco Smoking Status Never Smoker Dior Begum MA 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 Never used electronic cigarettes Information not available 01/30/2022 What is your exercise level? None Information not available 09/03/2022 Mental Status Question Answer Note LastModified by Organization D etails LastModified Time Do you feel stressed (tense, restless, nervous, or anxious, or unable to sleep at night)? [id number] Information not available 12/13/2022 Family History Relationship [...] High Blood Pressure Y Atrial Fibrillation N Kidney or Bladder Problems N Thyroid Problems N GI Problems N Depression N COPD N Blood Clots N Skin Problems N Eating Disorder N Anemia N Heart Attack ([place]) N Anxiety Disorder N Diabetes N Muscle, Joint, or Bone Problems N Seizures/Epilepsy N Acid Reflux (GERD) N Cancer N Stroke N Asthma N Allergies N ADHD N Substance Abuse N High Cholesterol Y Hepatitis N Liver Disease N Schizophrenia N Headaches N Osteoporosis N Heart Failure N Immunizations Vaccine Type Date Status Note Provider Nam e and Address Organization Details Recorded Time COVID-19, mRNA, LNP-S, PF, 30 mcg/0.3 mL dose 02/03/202 1 completed [place] [facility] 03/04/2023 09:52:56 COVID-19, mRNA, LNP-S, PF, 30 mcg/0.3 mL dose 1 completed [place] [facility] 03/04/2023 09:52:56 Influenza, split virus, quadrivalent, preservative 6 completed Not Available [facility] 06/26/2019 02:50:31 Tdap 0 completed [place] [facility] 03/04/2023 09:52:56 Influenza, adjuvanted, quadrivalent, PF 1 completed [place] [facility] 03/18/2023 09:42:54 COVID-19, mRNA, LNP-S, PF, 30 mcg/0.3 mL dose 1 completed [place] [facility] 03/18/2023 09:42:54 Influenza, adjuvanted, quadrivalent, PF 2 completed Not Available [facility] 11/15/2024 14:25:51 COVID-19, mRNA, LNP-S, bivalent, PF, 30 mcg/0.3 mL dose 2 completed Not Available [facility] 11/15/2024 14:25:51 Influenza, high-dose, quadrivalent, PF 3 completed [place] [facility] 03/18/2023 18:24:30 Influenza, high-dose, trivalent, PF 5 completed [place] [facility] 06/16/2024 17:29:09 Past Encounters Encounter ID Performer Location Encounter Start Date Encounter Closed Date Diagnosis/Indication Diagnosis SNOMED-CT Code Diagnosis ICD10 Code Diagnosis Note [id number] KASIA Metcalf [address] [place] [address] 05/18/2014 14:31:31 05/19/2014 15:15:33 Atypical chest pain 334046132 [id number] KASIA Metcalf [address] [place] [address] 05/26/2014 19:03:51 05/30/2014 11:58:07 Atypical chest pain 646409146 Dyspnea on exertion 59294802 [id number] Paula Morrow PA-C [facility] [address] [place] [address] 09/22/2015 16:49:54 09/25/2015 09:37:50 Knee joint painful on movement 264325336 M25.946 [id number] Paula Morrow PA-C [facility] [address] [place] [address] 03/21/2016 16:02:53 03/21/2016 17:12:58 Chronic arthropathy 97154580 M12.9 Fatigue 60264922 R53.83 [id number] Paula Morrow PA-C [facility] [address] [place] [address] 03/28/2016 10:02:34 03/28/2016 11:33:55 Fatigue 88298244 R53.83 Arthritis 4897851 M19.90 Administra tion of influenza vaccine 46304426 Z23 [id number] Paula Morrow PA-C [facility] [address] [place] [address] 04/16/2016 18:04:52 04/16/2016 18:55:20 Hypogonadism 54595600 E29.1 [id number] Joshua Henderson MD [facility] [address] [place] [address] 11/10/2020 15:23:47 11/13/2020 05:31:33 Fatigue 56938782 R53.83 Dyspnea on exertion 6084 5006 R06.09 Body mass index 30+ - obesity 899804238 Z68.36 Male hypogonadism 954519 06 E29.1 Screening for malignant neoplasm of prostate 715300061 Z12.5 [id number] Paula Morrow PA-C [facility] [address] [place] [address] 01/30/2022 10:28:35 01/30/2022 11:56:08 Gastroesophageal reflux disease without esophagitis 927169945 K21.9 Screening for malignant neoplasm of colon 033609225 Z12.11 Adult [facility] th examination 070718981 Z00.00 [id number] Paula Morrow PA-C [facility] [address] [place] [address] 09/03/2022 10:10:25 09/04/2022 12:36:28 Adult health examination 417605030 Z00.00 Overweight 753463110 E66 .3 [id number] Joshua Henderson MD [facility] [address] [place] [address] 12/13/2022 10:23:26 12/16/2022 09:53:35 Essential hypertension 28793597 I10 Overweight 145445028 E66 .3 Unexplaine d weight loss 242801681 R63.4 Hypogonadism 11212835 E2 9.1 Nausea 458744772 R11.0 [id number] Joshua Henderson MD [facility] [address] [place] [address] 02/18/2023 16:46:17 02/20/2023 15:27:21 Chronic low back pain 657096267 M54.51 Overweight 726973441 E66 .3 [id number] Paula Morrow PA-C [facility] [address] [place] [address] 03/04/2023 18:28:31 03/05/2023 14:13:58 Lumbar radiculopathy 289623366 M54.16 [id number] Paula Morrow PA-C [facility] [address] [place] [address] 03/18/2023 17:57:05 03/19/2023 15:59:56 Lumbar radiculopathy 400057434 M54.16 Overweight 825072120 E66 .3 Administra tion of influenza vaccine 96598008 Z23 [id number] Paula Morrow PA-C [facility] [address] [place] [address] 09/02/2023 17:28:07 09/05/2023 00:30:53 Male hypogonadism 08037606 E29.1 Essential hypertension 39103029 I10 Muscle pain 83930207 M79 .18 Overweight 702253526 E66 .3 Fatigue 93452569 R53.83 Exposure to asbestos 699 053256 Z77.978 [id number] Joshua Henderson MD [facility] [address] [place] [address] 10/02/2023 14:01:31 10/09/2023 12:43:37 Angina pectoris 644030707 I20.89 Dyspnea on exertion 6084 5006 R06.09 Essential hypertension 99594882 I10 Overweight 878857299 E66 .3 [id number] Joshua Henderson MD [facility] [address] [place] [address] 10/14/2023 17:38:20 10/15/2023 12:50:06 Essential hypertension 15179498 I10 Mixed hyperlipidemia 267 915791 E78.2 wants to cont diet Overweight 898345025 E66 .3 [id number] Joshua Henderson MD [facility] [address] [place] [address] 06/16/2024 16:45:12 06/18/2024 10:32:33 Male hypogonadism 53241736 E29.1 Arthritis 6324623 M15.0 Gastroesop hageal reflux disease without esophagitis 357682403 K21.9 Osteoarthritis 640378667 M15.0 Essential hypertension 20272249 I10 Coronary arteriosclerosis 54629059 I25.10 Mixed hyperlipidemia 267 502346 E78.2 wants to cont diet Administra tion of influenza vaccine 95752171 Z23 [id number] Joshua Henderson MD [facility] [address] [place] [address] 11/15/2024 14:24:49 11/16/2024 09:54:42 Essential hypertension 70125328 I10 Osteoarthritis 340603674 M15.0 Arthritis 7296525 M15.0 Male hypogonadism 749642 06 E29.1 Influenza caused by Influenza A virus 494244611 J10.1 Right uppe r quadrant pain 438967926 R10.11 Hypoxia 284323603 R09.02 Obese class II 910141317 1 43333 E66.812 Health Concerns Section Related Observation LastModified by Organization Detai ls LastModified Time None Recorded Concern Status LastModified by Organization Details LastModified Time None Recorded Advance Directives Directive None Recorded Payers Encounter Date Sequence Insurance Name Policy Number Policy Erazo Covered Member ID Erazo Member ID Guarantor Name 09/02/2023 1 [employer] (MEDICARE REPLACEMENT/A DVANTAGE - HMO) [id number] Shen Mccullough [id number] Shen Mccullough 10/02/2023 1 [employer] (MEDICARE REPLACEMENT/A DVANTAGE - HMO) [id number] Shen Mccullough [id number] Shen Mccullough 10/14/2023 1 [employer] (MEDICARE REPLACEMENT/A DVANTAGE - HMO) [id number] Shen Mccullough [id number] Shen Mccullough 06/16/2024 1 [employer] (MEDICARE REPLACEMENT/A DVANTAGE - HMO) [id number] Shen Mccullough [id number] Shen Mccullough 11/15/2024 1 [facility] (MEDICARE REPLACEMENT/A DVANTAGE - HMO) [id number] Shen Mccullough [id number] Shen Mccullough Notes Date Note Type Note Provider Name and Address Organization Details Recorded Time 09/02/2023 text/html having lots of muscle spasms...quit taking everything...sleep has been bad..has a cough and 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 Paula Morrow PA-C Attn: Accounting[address] [facility], [place], [address], [place] [facility] 10/02/2023 14:45:39 10/14/2023 text/html go over labs...s ee testosterone and lipids and liver looks fatty...reports hasnt taken testosterone in 3 weeks... Paula Morrow PA-C Attn: Accounting, [address] [place], [address], [place] [facility] 10/14/2023 18:06:53 11/15/2024 text/html began friday 2 days ago with lung and cough...SOB..diagn osed with influenza A..no labs no chest xray..cough is excruciating.. Paula Morrow PA-C Attn: Accounting[address] [place], [address], [place] [facility] 11/15/2024 15:01:46
[2024-11-16 17:18] LABS: Amorphous Sediment Urine Few; Appearance Urine Cloudy (Clear); Bacteria Urine 1+ /hpf; RBC Urine None seen /hpf (0-2); Squamous Epithelial Cell Urine Few /hpf (Few); WBC Urine 0-3 /hpf (0-3)
[2024-11-16 17:53] LABS: Lipase 157 U/L (23-300)
--- NOTE | 2024-11-16 18:15 | PC.NURSE ---
Called CT to inquire about delay in getting results. Tech contacted radiologist who stated they would read Pt's CT next.
[2024-11-16] MEDS: SODIUM POLYSTYRENE SULFONONATE 15 GM/60 ML BTL PO (19:00)
--- NOTE | 2024-11-17 15:18 | PC.NURSE ---
blood culture , no growth noted. pre.liminary.
--- NOTE | 2024-11-22 12:49 | PC.NURSE ---
FINAL BLOOD CULTURE REPORT; NO GROWTH AFTER 5 DAYS.
== END 2024-11-16 19:07 | disposition home or self-care (01) ==
PROVIDERS: Emergency Provider Emergency Medicine; PCP Physician Assistant
DX: R53.1 Weakness (principal); R41.82 Altered mental status, unspecified; T37.5X5A Adverse effect of antiviral drugs, initial encounter; I10 Essential (primary) hypertension; E78.5 Hyperlipidemia, unspecified; Z79.899 Other long term (current) drug therapy
CPT/HCPCS: 36415; 70450; 71046; 74177; 80053; 81001; 83605; 83690; 84484; 85025; 85610; 85730; 87040; 93005; 99284; A9270; Q9967

== ENCOUNTER 2025-01-27 12:35 | Outpatient (CLI) | payer MEDICARE, SELFPAY ==
--- NOTE | ~2025-01-27 | US_ITS ---
US soft tissue abdomen 01/27/2025 13:01 Indication: Bruising and lump right lateral ribs. Evaluate for mass. Procedure: Soft tissue ultrasound of the right lower ribs and the area palpable concern Comparison: No prior studies for comparison. Findings: Multiple heterogeneous echotexture without focal solid or cystic mass. Impression: 1: No discrete mass or fluid collection in the area of palpable concern in the right lower chest. Reviewed, dictated and finalized at location O. Impression: 1: No discrete mass or fluid collection in the area of palpable concern in the right lower chest.
--- OUTSIDE RECORDS SUMMARY | 2025-01-27 12:40 | XMS_ITS | Clinical Summary ---
Author Organization [facility] Address [address] [place] [address] Phone Care Team Providers Care Raw Shellfish Preparer Name Role Phone Naif Morrow Primary Care Provider [phone] Allergies No known active allergies Medications atorvastatin [...] 11/13/2024 9:22 PM CDT Emergency [facility] Emergency [address] [facility] [place] [address] Ambrosio Jin MD Influenza A [...] 2024 04/20/2022, 04/28/2021, 08/02/2020, Additional history exists Influenza Immunization (#1) 2025 01/0 01/2025, 03/18/2023, 04/20/2022, Additional history exists Colonoscopy 07/22/2027 07/22/2022 Colorectal Cancer Screening 07/22/2027 Td Immunization Every 10 Years (Adults With 1 Tdap) 03/21/2030 03/21/2020 Respiratory Syncytial Virus (RSV) Immunization (Adult) (1 - 1-dose 75+ series) 08/18/2030 DTaP/Tdap/Td Immunization Discontinued 03/21/2020 PSA Discussion Completed 11/15/2020 Hepatitis B Immunization Aged Out No longer [...] mcg/mL FEU 11/13/2024 8:49 PM CDT [facility] Blood Venipuncture / Unknown 11/13/2024 8:17 PM CDT 11/13/2024 8:32 PM CDT Narrative [facility] - 11/13/2024 8:49 PM CDT The FDA has approved this method to exclude the diagnosis of DVT and/or PE at the cutoff value of <0.50 mcg/mL FEU. Ambrosio Jin MD HEMATOLOGY ORDERABLES Tanvi l Result [facility] [address] [place] [address] * XR RIBS UNILATERAL WITH PA CHEST [...] Hubert Castillo M.D. AR: ORI Report ID: [id number] Reading Location: [id number] Procedure Note Hubert Castillo MD - 11/13/2024 [...] Hubert Castillo M.D. AR: ORI Report ID: [id number] Reading Location: [place] [address] IMPRESSION: No rib fracture or other acute abnormality identified. Ambrosio Jin MD IMG DIAGNOSTIC ORDERABLES Final Result * (ABNORMAL) RSV,SARS-COV-2,INFLUENZA A&B BY PCR (11/13/2024 7:25 PM CDT) [facility] FLU A Positive(A) Negative, Error 11/13/2024 8:17 PM CDT [facility] FLU B Negative Negative 11/13/2024 8:17 PM CDT [facility] RESP SYNC VIRUS Negative Negative 8:17 PM CDT [facility] SARSCOV2 NOT DETECTED (Reference Range for this test is Not Detected) 11/13/2024 8:17 PM CDT [facility] Comment:This test was perfor med by a Reverse Park Guard PCR Method. Swab NASOPHARYNGEAL WASHINGS / Unknown Non-Phlebotomy Collection / Unknown 11/13/2024 7:25 PM CDT 11/13/2024 7:39 PM CDT Ambrosio Jin MD MICROBIOLOGY - GENERAL ORD ERABLES Final Result [facility] [address] [place] [address] * PSA SCREEN (11/15/2020 10:19 AM CDT) [facility] PSA SCREEN, TOTAL 0.25 <=4.00 ng/mL 11/15/2020 11:17 AM CDT [facility] Blood Venipuncture / Unknown 11/15/2020 10:19 AM CDT 11/15/2020 10:40 AM CDT Narrative [facility] - 11/15/2020 11:17 AM CDT PSA NOTE: The PSA value should be used in conjunction with information available from clinical evaluation and other diagnostic procedures. Naif Morrow PAC CHEMISTRY ORDERABLES Final Re sult [facility] [address] [facility] [place] [address] from Last 3 Months or Most Recently Relevant to Health Maintenance Insurance MEDICARE C [facility] Care Teams Raw Shellfish Preparer Relationship Specialty Start Date End Date Naif Morrow, JAYLON [address] [place] [address] PCP - General Physician Electrical Estimator 11/15/20
--- OUTSIDE RECORDS SUMMARY | 2025-01-27 12:40 | XMS_ITS | Clinical Summary ---
Author Organization [address] Address [address] [place] [facility] [place] [address] Care Team Providers Care Extractive Metallurgist Name Role Phone Naif Morrow Primary Care Provider [phone] Allergies No known active allergies Medications aspirin [...] Active Additional Information Patient not taking.Reported on 12/15/[address] (VOLTAREN) 75 mg EC tablet [...] (01/25/2022): Added automatically from request for surgery [id number] Shortness of breath 06/29/2014 Overview (09/12/2016): Dyspnea Encounters Date Type Department Care Team Description 12/15/2024 3:45 PM CDT Office Visit [facility] Orthopedics [facility] Medicine [address] [place] [address] Eli Tee PA Bilateral primary osteoarthritis of knee (Primary Dx) 11/18/[address] 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 Gender Identity Not on file Sexual Orientation Not on file Obstetrics History Last Filed Vital Signs Vital Sign Reading Time Taken Comments Blood Pressure 136/79 12/15/2024 3:54 PM CDT Pulse 69 12/15/2024 3:54 PM CDT Temperature 36.1 C (97 F) 01/09/2021 8:30 AM CDT Respiratory Rate 18 02/20/2024 10:24 AM CDT Oxygen Saturation 97% 01/09/2021 1:35 PM CDT Inhaled Oxygen Concentration - - Weight 131.5 kg (290 lb) 12/15/2024 3:54 PM CDT Height 188 cm (6' 2) 12/15/2024 3:54 PM CDT Body Mass Index 37.23 12/15/2024 3:54 PM CDT Plan of Treatment Health Maintenance Due Date Last Done Comments Colon Cancer Screening-Colonoscopy 1955 Depression Screening 1955 Hepatitis C Screening 1955 Prostate Cancer Screening-PSA 1955 Hepatitis B Screening 08/18/1973 Pneumococcal vaccine 65+ (1 of 1 - PCV) 08/18/2005 Zoster Vaccine (1 of 2) 08/18/2005 Abdominal Aortic Aneurysm (A AA) Screen 08/18/2020 Well Visit 65+ 08/18/2020 Fall Risk Assessment 01/09/2022 01/09/2021 Covid-19 Vaccine ( season) 2024 04/28/2021, 08/02/2020, 07/12/2020 Influenza Vaccine (#1) 2025 06/16/2024, 2015 DTaP/Tdap/Td Vaccine (2 - Td or Tdap) 03/21/2030 Medical Devices Implanted Type Area Hydroelectric Plant Technician Device Identifier Shelf Expiration Date Model / Serial / Lot [employer]ig [employer] [id number] Angio-Seal Evolution 6fr .035in Guidewire Bypass Tube Suture - [id number] Implanted:Qty: 1 on 01/09/2021 by Francisco Yee MD at [facility] [employer]ne 08/06/2021 [id number] / / [id number] Procedures Procedure Name Priority Date/Time Associated Diagnosis Comments CO ARTHROCENTESIS ASPIR&/INJ MAJOR JT/BURSA W/O US Routine 12/15/2024 3:45 PM CDT Bilateral primary osteoarthritis of knee from Last 3 Months Results * CO ARTHROCENTESIS ASPIR&/INJ MAJOR JT/BURSA W/O US (12/15/2024 3:45 PM CDT) Narrative Eli Tee PA - 12/15/2024 3:45 PM CDT Eli Tee PA 12/15/2024 4:08 PM Large Joint (Hip, Knee, Shoulder) Injection: [...] Months Insurance MEDICARE UHC MEDICARE ADVANTAGE MEDICARE [facility] WORKERS COMPENSATION GENERIC Advance Directives For more information, please contact: [phone] * Full Code (Latest Code Status on File) Date Activated Date Inactivated Comments 01/09/2021 11:19 AM 01/09/2021 6:45 PM Care Teams Extractive Metallurgist Relationship Specialty Start Date End Date Naif Morrow PA [address] [place] [address] PCP - General Family Practice 03/21/20
== END 2025-01-27 12:36 | disposition home or self-care (01) ==
LOC: CHSIMG 12:38
PROVIDERS: PCP Physician Assistant; Visit Provider Physician Assistant
DX: S39.001A Unspecified injury of muscle, fascia and tendon of abdomen, initial encounter (principal)
CPT/HCPCS: 76705